=== PATIENT | female | born 1965 | race Caucasian/White ===

== ENCOUNTER 2023-09-09 13:53 | Observation (INO) | payer OTHER ==
[2023-09-09 14:33] LABS: Absolute Neutrophil Ct (ANC) 16.18 x10^3/uL (1.4-6.9); BASOPHIL % 0.2 % (0.0-0.4); Basophil (Absolute #) 0.05 x10^3/uL (0-0.4); Eosinophil (Absolute #) 0.01 x10^3/uL (0-0.5); Hematocrit 41.3 % (35-47); Hemoglobin 14.1 g/dL (12.0-16.0); IMMATURE GRAN # 0.57 x10^3u/L (0.00-0.03); IMMATURE GRAN % 2.6 % (0.00-0.4); Lymphocyte (Absolute #) 1.57 x10^3/uL (1.0-4.6); Lymphocytes % 7.3 % (24.0-44.0); Mean Cell Volume 89.2 fL (78-100); Mean Corpuscular Hemoglobin 30.5 pg (26-32); Mean Corpuscular Hgb Concent. 34.1 g/dL (32-36); Mean Platelet Volume 9.7 fL (7.5-11.0); Monocyte (Absolute #) 3.18 x10^3/uL (0.0-1.3); Monocytes % 14.7 % (0.0-12.0); Neutrophil % 75.2 % (36.0-66.0); Platelet Count 237 x10^3/uL (150-450); Red Blood Count 4.63 x10^6/uL (4.1-5.4); Red Cell Distribution Width 13.2 % (11.5-14.0); White Blood Count 21.6 x10^3/uL (4.0-10.5)
[2023-09-09 14:48] LABS: ALBUMIN 3.6 g/dL (3.5-5.0); ANION GAP 12.8 MEQ/L (5-15); BILIRUBIN,TOTAL 2.8 mg/dL (0.2-1.3); Calcium 8.6 mg/dL (8.4-10.2); Creatinine 1 0.79 mg/dL (0.52-1.04); EST GLOMERULAR FILTRATION RATE 85.6 ML/MIN; Potassium 4.1 mmol/L (3.5-5.1); Total Protein 7.1 g/dL (6.3-8.2)
[2023-09-09 14:51] LABS: Appearance Turbid (Clear); Bilirubin Small (Negative); Blood Moderate (Negative); Epithelial Cells Rare /HPF (None Seen); Glucose, Urine Negative (Negative); Ketones Trace (Negative); Leukocyte Esterase Large (Negative); Nitrite Positive (Negative); Ph 5.5 (4.6-8.0); Protein,Urine Dip 100 (Negative); WBC >100 /HPF (0-5)
[2023-09-09 14:52] LABS: ADD URINE CULTURE? YES (NO); Bacteria Moderate /HPF (None Seen); Hyaline Casts None Seen /LPF (0-2)
--- NOTE | 2023-09-09 15:21 | XRAY ---
Indication: Right flank pain. Multiple contiguous axial images obtained through the abdomen and pelvis without contrast using renal stone protocol. Impression: None Lung bases are degraded by respiration artifact. No focal infiltrate or effusion. Tiny left lower lobe calcific granuloma. Heart not enlarged. Markedly atrophic left kidney with large chunky calculi. No right renal calculus. Right kidney appears prominent/edematous with perinephric stranding favoring nephritis. Previous hysterectomy. Noncontrasted stomach and bowel loops appear nonobstructed. Mild diffuse scattered colonic fecal debris. No free fluid/air. Remaining liver, gallbladder, pancreas, spleen, adrenal glands, and bladder are unremarkable for noncontrast exam. Mild aortoiliac calcifications without AAA. Osseous structures intact. Impression: 1. Prominent and edematous right kidney with perinephric stranding. Rule out nephritis. 2. Mild fecal stasis. 3. Chronic findings including atrophic left kidney with chunky macro-calculi and arteriosclerotic disease.
[2023-09-09 15:58] LABS: Slide Review 1 YES
[2023-09-09] MEDS ORDERED: Levofloxacin 500MG/100ML D5W 500 MG/100 ML BAG IV ONE (16:16)
[2023-09-09] MEDS: Levofloxacin 500MG/100ML D5W 500 MG/100 ML BAG IV STA (16:17)
[2023-09-09] MEDS ORDERED: Sodium Chloride 0.9% 1000 ML 1,000 ML ONE (16:19)
[2023-09-09] MEDS: Sodium Chloride 0.9% 1000 ML 1,000 ML IV SCH ×2 (16:21→18:31)
--- NOTE | 2023-09-09 16:21 | ERPHSYRPT ---
- History of Present Illness Time Seen by Provider: 09/09/23 14:25 Source: patient Exam Limitations: no limitations Patient Subjective Stated Complaint: pt here for lower right back pain. no injury, states has been having frequency of urine, no fever, has been taking azo at home Triage Nursing Assessment: pt alert,arrived per wc, resp easy, skin w/d/p. no edema noted, moves all ext well Physician History: Patient is a 58-year-old female presents to our ED for evaluation of right mid back pain that started approximately 1 week ago. Symptoms have gotten progressively worse in this timeframe. Patient states she feels weak. No trauma no fever no nausea vomiting diaphoresis. Symptoms are progressive symptoms are moderate in intensity. No specific worsening improving factors. No associated chest pain or shortness of breath. Patient otherwise feels well. Family friend at bedside. Patient voices no other complaints or concerns at this time. Portions of this note were created with voice recognition technology. There may be grammatical, spelling, punctuation or sound alike errors Timing/Duration: today Severity: moderate Modifying Factors: Improves With: nothing Associated Symptoms: denies symptoms Allergies/Adverse Reactions: Penicillins Allergy (Verified 09/09/23 14:04) Home Medications: No Reportable Medications [No Reported Medications] 09/09/23 [History] Hx Influenza Vaccination/Date Given: No Hx Pneumococcal Vaccination/Date Given: No Immunizations Up to Date: Yes Travel Risk - International Travel Have you traveled outside of the country in past 3 weeks: No - Emerging Infectious Disease Are you exhibiting symptoms associated with any current EIDs: No - Review of Systems Constitutional: No Symptoms, No Fever, No Chills Eyes: No Symptoms Ears, Nose, & Throat: No Symptoms Respiratory: No Symptoms, No Cough, No Dyspnea Cardiac: No Symptoms, No Chest Pain, No Edema, No Syncope Abdominal/Gastrointestinal: No Symptoms, No Abdominal Pain, No Nausea, No Vomiting, No Diarrhea Genitourinary Symptoms: No Symptoms, No Dysuria Musculoskeletal: No Symptoms, No Back Pain, No Neck Pain Skin: No Symptoms, No Rash Neurological: No Symptoms, No Dizziness, No Focal Weakness, No Sensory Changes Psychological: No Symptoms Endocrine: No Symptoms Hematologic/Lymphatic: No Symptoms Immunological/Allergic: No Symptoms All Other Systems: Reviewed and Negative - Past Medical History Pertinent Past Medical History: No Female Reproductive Disorders: Ovarian Cancer - Past Surgical History Past Surgical History: Yes Female Surgical History: Hysterectomy - Social History Smoking Status: Current every day smoker Exposure to second hand smoke: Yes Drug Use: marijuana - Nursing Vital Signs Nursing Vital Signs: Initial Vital Signs Temperature 97.0 F 09/09/23 14:17 Pulse Rate 106 H 09/09/23 14:17 Respiratory Rate 18 09/09/23 14:17 Blood Pressure 109/63 09/09/23 14:17 O2 Sat by Pulse Oximetry 97 09/09/23 14:17 Pain Scale Pain Intensity [] 6 Pain Intensity 10 - Physical Exam General Appearance: no apparent distress, alert Eye Exam: PERRL/EOMI, eyes nml inspection Ears, Nose, Throat Exam: normal ENT inspection, TMs normal, pharynx normal, moist mucous membranes Neck Exam: normal inspection, non-tender, supple, full range of motion Respiratory Exam: normal breath sounds, lungs clear, airway intact, No respiratory distress Cardiovascular Exam: regular rate/rhythm, normal heart sounds, normal peripheral pulses Gastrointestinal/Abdomen Exam: soft, normal bowel sounds, No tenderness, No mass Back Exam: normal inspection, normal range of motion, No CVA tenderness, No vertebral tenderness Extremity Exam: normal inspection, normal range of motion, pelvis stable Neurologic Exam: alert, oriented x 3, cooperative, normal mood/affect, nml cerebellar function, nml station & gait, sensation nml, No motor deficits Skin Exam: normal color, warm, dry, No rash Lymphatic Exam: No adenopathy SpO2 Interpretation: normal SpO2: 97 O2 Delivery: Room Air - Course Nursing assessment & vital signs reviewed: Yes - CT Exams Abdomen/Pelvis CT Interpretation: Tele-radiologist Report (Right nephritis atrophied left kidney with large chunky nephrolithiasis) Ordered Tests: Active Orders 24 hr Category Date Time Status ABDOMEN AND PELVIS W/0 CONTRAS [CT] Stat Exams 09/09/23 14:28 Completed CBC W DIFF Stat Lab 09/09/23 14:30 Completed CMP Stat Lab 09/09/23 14:30 Completed CULTURE,URINE Stat Lab 09/09/23 14:30 Received LIPASE Stat Lab 09/09/23 14:30 Completed TROPONIN Q4H Lab 09/09/23 14:30 Completed TROPONIN Q4H Lab 09/09/23 18:30 Ordered TROPONIN Q4H Lab 09/09/23 22:30 Ordered UA W/RFX UR CULTURE Stat Lab 09/09/23 14:30 Completed Medication Summary Generic Name Dose Route Start Last Admin Trade Name Freq PRN Reason Stop Dose Admin Levofloxacin/Dextrose 500 mg in 100 mls @ 100 mls/hr 09/09/23 16:13 09/09/23 16:17 Levofloxacin 500mg/100ml D5w IV 09/09/23 17:12 100 ml/hr STAT STA 100 mls/hr Administration Sodium Chloride 1,000 mls @ 100 mls/hr 09/09/23 16:30 09/09/23 16:21 Sodium Chloride 0.9% 1000 Ml IV 10/09/23 16:29 100 mls/hr .Q10H JYOTSNA Administration Discontinued Medications Generic Name Dose Route Start Last Admin Trade Name Freq PRN Reason Stop Dose Admin Levofloxacin/Dextrose Confirm 09/09/23 16:16 Levofloxacin 500mg/100ml D5w Administered 09/09/23 16:17 Dose 500 mg in 100 mls @ ud IV .[employer] Lab/Rad Data: Laboratory Result Diagrams 09/09/23 14:30 09/09/23 14:30 Laboratory Results 09/09/23 09/09/23 09/09/23 Range/Units 14:30 14:30 14:30 WBC (4.0-10.5) x10^3/uL RBC (4.1-5.4) x10^6/uL Hgb (12.0-16.0) g/dL Hct (35-47) % MCV (78-100) fL MCH (26-32) pg MCHC (32-36) g/dL RDW (11.5-14.0) % Plt Count (150-450) x10^3/uL MPV (7.5-11.0) fL Gran % (36.0-66.0) % Immature Gran % (Auto) (0.00-0.4) % Nucleat RBC Rel Count (0.00-0.1) % Eos # (Auto) (0-0.5) x10^3/uL Immature Gran # (Auto) (0.00-0.03) x10^3u/L Absolute Lymphs (auto) (1.0-4.6) x10^3/uL Absolute Monos (auto) (0.0-1.3) x10^3/uL Absolute Nucleated RBC (0.00-0.01) x10^3u/L Lymphocytes % (24.0-44.0) % Monocytes % (0.0-12.0) % Eosinophils % (0.00-5.0) % Basophils % (0.0-0.4) % Absolute Granulocytes (1.4-6.9) x10^3/uL Basophils # (0-0.4) x10^3/uL Sodium 129 L (135-145) mmol/L Potassium 4.1 (3.5-5.1) mmol/L Chloride 100 (98-107) mmol/L Carbon Dioxide 20 L (22-30) mmol/L Anion Gap 12.8 (5-15) MEQ/L BUN 16 (7-17) mg/dL Creatinine 0.79 (0.52-1.04) mg/dL Estimated GFR 85.6 ML/MIN Glucose 112 H (74-106) mg/dL Calcium 8.6 (8.4-10.2) mg/dL Total Bilirubin 2.80 H (0.2-1.3) mg/dL AST 64 H (14-36) U/L ALT 87 H (0-35) U/L Alkaline Phosphatase 159 H (38-126) U/L Troponin I 0.025 (0.000-0.034) ng/mL Serum Total Protein 7.1 (6.3-8.2) g/dL Albumin 3.6 (3.5-5.0) g/dL Lipase 15 L (23-300) U/L Urine Color Dark Yellow A (Yellow) Urine Appearance Turbid A (Clear) Urine pH 5.5 (4.6-8.0) Ur Specific [facility] 1.010 (1.005-1.030) Urine Protein 100 A (Negative) Urine Glucose (UA) Negative (Negative) mg/dL Urine Ketones Trace A (Negative) Urine Blood Moderate A (Negative) Urine Nitrite Positive A (Negative) Urine Bilirubin Small A (Negative) Urine Urobilinogen 2.0 A (0.2) mg/dL Ur Leukocyte Esterase Large A (Negative) U Hyaline Cast (Auto) None Seen (0-2) /LPF Urine Microscopic RBC 6-10 A (0-5) /HPF Urine Microscopic WBC >100 A (0-5) /HPF Ur Epithelial Cells Rare (None Seen) /HPF Urine Bacteria Moderate A (None Seen) /HPF Urine Culture Reflexed YES (NO) Slides for Path Review 09/09/23 Range/Units 14:30 WBC 21.6 H (4.0-10.5) x10^3/uL RBC 4.63 (4.1-5.4) x10^6/uL Hgb 14.1 (12.0-16.0) g/dL Hct 41.3 (35-47) % MCV 89.2 (78-100) fL MCH 30.5 (26-32) pg MCHC 34.1 (32-36) g/dL RDW 13.2 (11.5-14.0) % Plt Count 237 (150-450) x10^3/uL MPV 9.7 (7.5-11.0) fL Gran % 75.2 H (36.0-66.0) % Immature Gran % (Auto) 2.6 H (0.00-0.4) % Nucleat RBC Rel Count 0.0 (0.00-0.1) % Eos # (Auto) 0.01 (0-0.5) x10^3/uL Immature Gran # (Auto) 0.57 H (0.00-0.03) x10^3u/L Absolute Lymphs (auto) 1.57 (1.0-4.6) x10^3/uL Absolute Monos (auto) 3.18 H (0.0-1.3) x10^3/uL Absolute Nucleated RBC 0.00 (0.00-0.01) x10^3u/L Lymphocytes % 7.3 L (24.0-44.0) % Monocytes % 14.7 H (0.0-12.0) % Eosinophils % 0.0 (0.00-5.0) % Basophils % 0.2 (0.0-0.4) % Absolute Granulocytes 16.18 H (1.4-6.9) x10^3/uL Basophils # 0.05 (0-0.4) x10^3/uL Sodium (135-145) mmol/L Potassium (3.5-5.1) mmol/L Chloride (98-107) mmol/L Carbon Dioxide (22-30) mmol/L Anion Gap (5-15) MEQ/L BUN (7-17) mg/dL Creatinine (0.52-1.04) mg/dL Estimated GFR ML/MIN Glucose (74-106) mg/dL Calcium (8.4-10.2) mg/dL Total Bilirubin (0.2-1.3) mg/dL AST (14-36) U/L ALT (0-35) U/L Alkaline Phosphatase (38-126) U/L Troponin I (0.000-0.034) ng/mL Serum Total Protein (6.3-8.2) g/dL Albumin (3.5-5.0) g/dL Lipase (23-300) U/L Urine Color (Yellow) Urine Appearance (Clear) Urine pH (4.6-8.0) Ur Specific [facility] (1.005-1.030) Urine Protein (Negative) Urine Glucose (UA) (Negative) mg/dL Urine Ketones (Negative) Urine Blood (Negative) Urine Nitrite (Negative) Urine Bilirubin (Negative) Urine Urobilinogen (0.2) mg/dL Ur Leukocyte Esterase (Negative) U Hyaline Cast (Auto) (0-2) /LPF Urine Microscopic RBC (0-5) /HPF Urine Microscopic WBC (0-5) /HPF Ur Epithelial Cells (None Seen) /HPF Urine Bacteria (None Seen) /HPF Urine Culture Reflexed (NO) Slides for Path Review YES - Progress Progress: improved Progress Note: 58-year-old female presents to our ED for evaluation of back pain. Physical exam reveals right CVA tenderness. CT negative for kidney stone however there is nephritis with an atrophic left kidney. UA reveals urinary tract infection with significant pyuria. Patient has a leukocytosis of 21,000. Patient received Levaquin IV antibiotic. However she will require hospitalization for further evaluation and treatment. Plan of care discussed with patient. She agrees to admission to [facility] for further evaluation and treatment. Management discussed with hospitalist Who accepts admission at 4:37 PM. Portions of this note were created with voice recognition technology. There may be grammatical, spelling, punctuation or sound alike errors Complexity problem addressed is moderate acute complicated No critical care time Complex of data reviewed and analyzed is extensive. Test ordered test reviewed results analyzed and correlated clinically with history and physical examination. Management discussed with hospitalist who accepts admission at 4:37 PM. Risk of complication and or risk of morbidity/mortality of patient management is high. Patient requires hospitalization for further evaluation and treatment. Time spent to admit patient is approximately 20 minutes. Plan of care established for shared decision making. No social determinants of health present impede follow-up. Portions of this note were created with voice recognition technology. There may be grammatical, spelling, punctuation or sound alike errors 09/09/23 16:42 Counseled pt/family regarding: lab results, diagnosis, rad results - Departure Departure Disposition: Observation Clinical Impression: Pyelonephritis, Leukocytosis, Urinary tract infection, Hyponatremia, Generalized weakness, Atherosclerotic cardiovascular disease, Fecal stasis Condition: Stable Critical Care Time: No Referrals: DOCTOR,NO FAMILY [Primary Care Provider] - Follow up/PCP as directed
--- NOTE | 2023-09-09 17:33 | PCM.HP ---
<YAYO DE LA CRUZ - Last Filed: 09/09/23 17:27> History of Present Illness - Chief Complaint Chief Complaint: Pyelonephritis leukocytosis hyponatremia, sepsis Date: 09/09/23 History of Present Illness: Ms. Diaz is a 58 year old female with a pmhx of cancer (patient unsure of type states she had labia removed as treatment) who presented to ED 09/09/23 with complaints of right flank pain, subjective fevers, chills, weakness, poor appetite, and urinary urgency for the past week. She denies dysuria, abdominal pain, nausea, or vomiting. CT of the abdomen and pelvis showing fecal stasis, right nephritis, and chronic findings of atrophied left kidney with large chunky nephrolithiasis. Patient meeting sepsis criteria with tachycardia, WBC at 21.6, known source of infection with positive UA/CT consistent with pyelonephritis. Patient given IVF and levofloxacin in ED. - Review of Systems Constitutional: Fever, Chills, Fatigue, Malaise, Weakness Eyes: No Symptoms Ears, Nose, & Throat: No Symptoms Respiratory: No Symptoms Cardiac: No Symptoms Abdominal/Gastrointestinal: Appetite Changes Genitourinary Symptoms: Urgency, Flank Pain Musculoskeletal: Back Pain Skin: No Symptoms Neurological: No Symptoms Psychological: No Symptoms Endocrine: No Symptoms Hematologic/Lymphatic: No Symptoms Immunological/Allergic: No Symptoms Medications & Allergies Home Medications: Home Medication List No Reportable Medications [No Reported Medications] 09/09/23 [History Confirmed 09/09/23] Allergies/Adverse Reactions: Allergies Allergy/AdvReac Type Severity Reaction Status Date / Time Penicillins Allergy Verified 09/09/23 14:04 - Past Medical History Past Medical History: No Reproductive Disorders: Other (cancer with labia removed) - Past Surgical History Past Surgical History: Yes - Social History Smoking Status: Current some day smoker (thc) Exposure to second hand smoke: Yes Alcohol: None Drug Use: marijuana - Social Determinants of Health Will the patient participate in the screening: Yes Do you worry about a steady place to live?: No Do you have any problems with any of the following?: No known problems In the past 12 months,have you had to go without utilities?: No Have you or anyone in your house had to go without enough: No Transportation Issues: No Has anyone in your support network made you feel unsafe?: No - Physical Exam Vital Signs: Vital Signs - 24 hr Temp Pulse Resp BP BP Pulse Ox 09/09/23 16:47 97 09/09/23 16:04 99/78 97 09/09/23 14:30 105/62 09/09/23 14:17 97.0 F 106 H 18 109/63 97 General Appearance: no apparent distress Neurologic Exam: alert, oriented x 3, cooperative Eye Exam: PERRL/EOMI Ears, Nose, Throat Exam: normal ENT inspection Neck Exam: normal inspection Respiratory Exam: normal breath sounds, lungs clear Cardiovascular Exam: tachycardia Gastrointestinal/Abdomen Exam: soft, normal bowel sounds Pelvic Exam: not done Rectal Exam: deferred Back Exam: normal inspection Extremity Exam: normal inspection Skin Exam: pale Results - Labs Lab/Micro Results: Lab Results-Last 24 Hours 09/09/23 09/09/23 09/09/23 Range/Units 14:30 14:30 14:30 WBC 21.6 H (4.0-10.5) x10^3/uL RBC 4.63 (4.1-5.4) x10^6/uL Hgb 14.1 (12.0-16.0) g/dL Hct 41.3 (35-47) % MCV 89.2 (78-100) fL MCH 30.5 (26-32) pg MCHC 34.1 (32-36) g/dL RDW 13.2 (11.5-14.0) % Plt Count 237 (150-450) x10^3/uL MPV 9.7 (7.5-11.0) fL Gran % 75.2 H (36.0-66.0) % Immature Gran % (Auto) 2.6 H (0.00-0.4) % Nucleat RBC Rel Count 0.0 (0.00-0.1) % Eos # (Auto) 0.01 (0-0.5) x10^3/uL Immature Gran # (Auto) 0.57 H (0.00-0.03) x10^3u/L Absolute Lymphs (auto) 1.57 (1.0-4.6) x10^3/uL Absolute Monos (auto) 3.18 H (0.0-1.3) x10^3/uL Absolute Nucleated RBC 0.00 (0.00-0.01) x10^3u/L Lymphocytes % 7.3 L (24.0-44.0) % Monocytes % 14.7 H (0.0-12.0) % Eosinophils % 0.0 (0.00-5.0) % Basophils % 0.2 (0.0-0.4) % Absolute Granulocytes 16.18 H (1.4-6.9) x10^3/uL Basophils # 0.05 (0-0.4) x10^3/uL Sodium 129 L (135-145) mmol/L Potassium 4.1 (3.5-5.1) mmol/L Chloride 100 (98-107) mmol/L Carbon Dioxide 20 L (22-30) mmol/L Anion Gap 12.8 (5-15) MEQ/L BUN 16 (7-17) mg/dL Creatinine 0.79 (0.52-1.04) mg/dL Estimated GFR 85.6 ML/MIN Glucose 112 H (74-106) mg/dL Calcium 8.6 (8.4-10.2) mg/dL Total Bilirubin 2.80 H (0.2-1.3) mg/dL AST 64 H (14-36) U/L ALT 87 H (0-35) U/L Alkaline Phosphatase 159 H (38-126) U/L Troponin I (0.000-0.034) ng/mL Serum Total Protein 7.1 (6.3-8.2) g/dL Albumin 3.6 (3.5-5.0) g/dL Lipase 15 L (23-300) U/L Urine Color Dark Yellow A (Yellow) Urine Appearance Turbid A (Clear) Urine pH 5.5 (4.6-8.0) Ur Specific [place] 1.010 (1.005-1.030) Urine Protein 100 A (Negative) Urine Glucose (UA) Negative (Negative) mg/dL Urine Ketones Trace A (Negative) Urine Blood Moderate A (Negative) Urine Nitrite Positive A (Negative) Urine Bilirubin Small A (Negative) Urine Urobilinogen 2.0 A (0.2) mg/dL Ur Leukocyte Esterase Large A (Negative) U Hyaline Cast (Auto) None Seen (0-2) /LPF Urine Microscopic RBC 6-10 A (0-5) /HPF Urine Microscopic WBC >100 A (0-5) /HPF Ur Epithelial Cells Rare (None Seen) /HPF Urine Bacteria Moderate A (None Seen) /HPF Urine Culture Reflexed YES (NO) Slides for Path Review YES 09/09/23 Range/Units 14:30 WBC (4.0-10.5) x10^3/uL RBC (4.1-5.4) x10^6/uL Hgb (12.0-16.0) g/dL Hct (35-47) % MCV (78-100) fL MCH (26-32) pg MCHC (32-36) g/dL RDW (11.5-14.0) % Plt Count (150-450) x10^3/uL MPV (7.5-11.0) fL Gran % (36.0-66.0) % Immature Gran % (Auto) (0.00-0.4) % Nucleat RBC Rel Count (0.00-0.1) % Eos # (Auto) (0-0.5) x10^3/uL Immature Gran # (Auto) (0.00-0.03) x10^3u/L Absolute Lymphs (auto) (1.0-4.6) x10^3/uL Absolute Monos (auto) (0.0-1.3) x10^3/uL Absolute Nucleated RBC (0.00-0.01) x10^3u/L Lymphocytes % (24.0-44.0) % Monocytes % (0.0-12.0) % Eosinophils % (0.00-5.0) % Basophils % (0.0-0.4) % Absolute Granulocytes (1.4-6.9) x10^3/uL Basophils # (0-0.4) x10^3/uL Sodium (135-145) mmol/L Potassium (3.5-5.1) mmol/L Chloride (98-107) mmol/L Carbon Dioxide (22-30) mmol/L Anion Gap (5-15) MEQ/L BUN (7-17) mg/dL Creatinine (0.52-1.04) mg/dL Estimated GFR ML/MIN Glucose (74-106) mg/dL Calcium (8.4-10.2) mg/dL Total Bilirubin (0.2-1.3) mg/dL AST (14-36) U/L ALT (0-35) U/L Alkaline Phosphatase (38-126) U/L Troponin I 0.025 (0.000-0.034) ng/mL Serum Total Protein (6.3-8.2) g/dL Albumin (3.5-5.0) g/dL Lipase (23-300) U/L Urine Color (Yellow) Urine Appearance (Clear) Urine pH (4.6-8.0) Ur Specific [place] (1.005-1.030) Urine Protein (Negative) Urine Glucose (UA) (Negative) mg/dL Urine Ketones (Negative) Urine Blood (Negative) Urine Nitrite (Negative) Urine Bilirubin (Negative) Urine Urobilinogen (0.2) mg/dL Ur Leukocyte Esterase (Negative) U Hyaline Cast (Auto) (0-2) /LPF Urine Microscopic RBC (0-5) /HPF Urine Microscopic WBC (0-5) /HPF Ur Epithelial Cells (None Seen) /HPF Urine Bacteria (None Seen) /HPF Urine Culture Reflexed (NO) Slides for Path Review - Radiology Impressions Radiology Exams & Impressions: Radiology Procedures Category Date Time Status ABDOMEN AND PELVIS W/0 CONTRAS [CT] Stat Exams 09/09/23 14:28 Completed Assessment/Plan (1) Sepsis Current Visit: Yes Status: Acute Assessment & Plan: -Secondary to pyelonephritis -CT showing . Prominent and edematous right kidney with perinephric stranding. Chronic findings including atrophic left kidney with chunky macro-calculi and arteriosclerotic disease -blood and urine cxs ordered -Lactate drawn. Repeat lactate will be drawn in initial >2mmol/L If subsequent lactate elevated, trend until WNL -IVF bolus-CBC, BMP, Mg, Phos in am -continue appropriate baseline home medications -DVT prophylaxis-lovenox 40 mg SQ daily -Will admin vasopressors if hypotensive after IV admin (MAP <65 or SBP <90). (2) Hyponatremia Current Visit: Yes Status: Acute Assessment & Plan: -most likely secondary to hypovolemia -IVF -Tele -Monitor BMP Q4H Code(s): E87.1 - HYPO-OSMOLALITY AND HYPONATREMIA (3) Pyelonephritis Current Visit: Yes Status: Acute Assessment & Plan: -CT as described above, consistent with right nephritis -Levaquin started in ED, will continue, follow culture, patient with penicillin allergy (anaphylactic reaction) -IVF -Urine/blood cult pending Code(s): N12 - TUBULO-INTERSTITIAL NEPHRITIS, NOT SPCF ACUTE OR CHRONIC (4) Transaminitis Current Visit: Yes Status: Acute Assessment & Plan: -Liver unremarkable on CT -Reactive vs infective process -Hep davis -Continue to monitor and trend VTE lovenox PPI protonix Dispo 1-2 days Code(s): R74.01 - ELEVATION OF LEVELS OF LIVER TRANSAMINASE LEVELS Telemedicine Encounter - Telemedicine Encounter Telemedicine Encounter: The entirety of this encounter was performed via Telemedicine" <SOLOMON CHARLES - Last Filed: 09/09/23 19:51> History of Present Illness - Chief Complaint History of Present Illness: is a 58 year old female. - Physical Exam Vital Signs: Vital Signs - 24 hr Temp Pulse Resp BP BP Pulse Ox 09/09/23 19:20 96 09/09/23 17:28 99.6 F 117 H 16 123/61 93 L 09/09/23 16:47 97 09/09/23 16:04 99/78 97 09/09/23 14:30 105/62 09/09/23 14:17 97.0 F 106 H 18 109/63 97 Results - Labs Lab/Micro Results: Lab Results-Last 24 Hours 09/09/23 09/09/23 09/09/23 Range/Units 14:30 14:30 14:30 WBC 21.6 H (4.0-10.5) x10^3/uL RBC 4.63 (4.1-5.4) x10^6/uL Hgb 14.1 (12.0-16.0) g/dL Hct 41.3 (35-47) % MCV 89.2 (78-100) fL MCH 30.5 (26-32) pg MCHC 34.1 (32-36) g/dL RDW 13.2 (11.5-14.0) % Plt Count 237 (150-450) x10^3/uL MPV 9.7 (7.5-11.0) fL Gran % 75.2 H (36.0-66.0) % Immature Gran % (Auto) 2.6 H (0.00-0.4) % Nucleat RBC Rel Count 0.0 (0.00-0.1) % Eos # (Auto) 0.01 (0-0.5) x10^3/uL Immature Gran # (Auto) 0.57 H (0.00-0.03) x10^3u/L Absolute Lymphs (auto) 1.57 (1.0-4.6) x10^3/uL Absolute Monos (auto) 3.18 H (0.0-1.3) x10^3/uL Absolute Nucleated RBC 0.00 (0.00-0.01) x10^3u/L Lymphocytes % 7.3 L (24.0-44.0) % Monocytes % 14.7 H (0.0-12.0) % Eosinophils % 0.0 (0.00-5.0) % Basophils % 0.2 (0.0-0.4) % Absolute Granulocytes 16.18 H (1.4-6.9) x10^3/uL Basophils # 0.05 (0-0.4) x10^3/uL Sodium 129 L (135-145) mmol/L Potassium 4.1 (3.5-5.1) mmol/L Chloride 100 (98-107) mmol/L Carbon Dioxide 20 L (22-30) mmol/L Anion Gap 12.8 (5-15) MEQ/L BUN 16 (7-17) mg/dL Creatinine 0.79 (0.52-1.04) mg/dL Estimated GFR 85.6 ML/MIN Glucose 112 H (74-106) mg/dL Lactic Acid (0.4-2.0) Calcium 8.6 (8.4-10.2) mg/dL Total Bilirubin 2.80 H (0.2-1.3) mg/dL AST 64 H (14-36) U/L ALT 87 H (0-35) U/L Alkaline Phosphatase 159 H (38-126) U/L Troponin I (0.000-0.034) ng/mL Serum Total Protein 7.1 (6.3-8.2) g/dL Albumin 3.6 (3.5-5.0) g/dL Lipase 15 L (23-300) U/L Procalcitonin (0.030-0.080) ng/mL Urine Color Dark Yellow A (Yellow) Urine Appearance Turbid A (Clear) Urine pH 5.5 (4.6-8.0) Ur Specific [place] 1.010 (1.005-1.030) Urine Protein 100 A (Negative) Urine Glucose (UA) Negative (Negative) mg/dL Urine Ketones Trace A (Negative) Urine Blood Moderate A (Negative) Urine Nitrite Positive A (Negative) Urine Bilirubin Small A (Negative) Urine Urobilinogen 2.0 A (0.2) mg/dL Ur Leukocyte Esterase Large A (Negative) U Hyaline Cast (Auto) None Seen (0-2) /LPF Urine Microscopic RBC 6-10 A (0-5) /HPF Urine Microscopic WBC >100 A (0-5) /HPF Ur Epithelial Cells Rare (None Seen) /HPF Urine Bacteria Moderate A (None Seen) /HPF Urine Culture Reflexed YES (NO) Slides for Path Review YES 09/09/23 09/09/23 09/09/23 Range/Units 14:30 17:55 17:56 WBC (4.0-10.5) x10^3/uL RBC (4.1-5.4) x10^6/uL Hgb (12.0-16.0) g/dL Hct (35-47) % MCV (78-100) fL MCH (26-32) pg MCHC (32-36) g/dL RDW (11.5-14.0) % Plt Count (150-450) x10^3/uL MPV (7.5-11.0) fL Gran % (36.0-66.0) % Immature Gran % (Auto) (0.00-0.4) % Nucleat RBC Rel Count (0.00-0.1) % Eos # (Auto) (0-0.5) x10^3/uL Immature Gran # (Auto) (0.00-0.03) x10^3u/L Absolute Lymphs (auto) (1.0-4.6) x10^3/uL Absolute Monos (auto) (0.0-1.3) x10^3/uL Absolute Nucleated RBC (0.00-0.01) x10^3u/L Lymphocytes % (24.0-44.0) % Monocytes % (0.0-12.0) % Eosinophils % (0.00-5.0) % Basophils % (0.0-0.4) % Absolute Granulocytes (1.4-6.9) x10^3/uL Basophils # (0-0.4) x10^3/uL Sodium (135-145) mmol/L Potassium (3.5-5.1) mmol/L Chloride (98-107) mmol/L Carbon Dioxide (22-30) mmol/L Anion Gap (5-15) MEQ/L BUN (7-17) mg/dL Creatinine (0.52-1.04) mg/dL Estimated GFR ML/MIN Glucose (74-106) mg/dL Lactic Acid 0.8 (0.4-2.0) Calcium (8.4-10.2) mg/dL Total Bilirubin (0.2-1.3) mg/dL AST (14-36) U/L ALT (0-35) U/L Alkaline Phosphatase (38-126) U/L Troponin I 0.025 (0.000-0.034) ng/mL Serum Total Protein (6.3-8.2) g/dL Albumin (3.5-5.0) g/dL Lipase (23-300) U/L Procalcitonin 0.392 H (0.030-0.080) ng/mL Urine Color (Yellow) Urine Appearance (Clear) Urine pH (4.6-8.0) Ur Specific [place] (1.005-1.030) Urine Protein (Negative) Urine Glucose (UA) (Negative) mg/dL Urine Ketones (Negative) Urine Blood (Negative) Urine Nitrite (Negative) Urine Bilirubin (Negative) Urine Urobilinogen (0.2) mg/dL Ur Leukocyte Esterase (Negative) U Hyaline Cast (Auto) (0-2) /LPF Urine Microscopic RBC (0-5) /HPF Urine Microscopic WBC (0-5) /HPF Ur Epithelial Cells (None Seen) /HPF Urine Bacteria (None Seen) /HPF Urine Culture Reflexed (NO) Slides for Path Review 09/09/23 Range/Units 18:01 WBC (4.0-10.5) x10^3/uL RBC (4.1-5.4) x10^6/uL Hgb (12.0-16.0) g/dL Hct (35-47) % MCV (78-100) fL MCH (26-32) pg MCHC (32-36) g/dL RDW (11.5-14.0) % Plt Count (150-450) x10^3/uL MPV (7.5-11.0) fL Gran % (36.0-66.0) % Immature Gran % (Auto) (0.00-0.4) % Nucleat RBC Rel Count (0.00-0.1) % Eos # (Auto) (0-0.5) x10^3/uL Immature Gran # (Auto) (0.00-0.03) x10^3u/L Absolute Lymphs (auto) (1.0-4.6) x10^3/uL Absolute Monos (auto) (0.0-1.3) x10^3/uL Absolute Nucleated RBC (0.00-0.01) x10^3u/L Lymphocytes % (24.0-44.0) % Monocytes % (0.0-12.0) % Eosinophils % (0.00-5.0) % Basophils % (0.0-0.4) % Absolute Granulocytes (1.4-6.9) x10^3/uL Basophils # (0-0.4) x10^3/uL Sodium (135-145) mmol/L Potassium (3.5-5.1) mmol/L Chloride (98-107) mmol/L Carbon Dioxide (22-30) mmol/L Anion Gap (5-15) MEQ/L BUN (7-17) mg/dL Creatinine (0.52-1.04) mg/dL Estimated GFR ML/MIN Glucose (74-106) mg/dL Lactic Acid (0.4-2.0) Calcium (8.4-10.2) mg/dL Total Bilirubin (0.2-1.3) mg/dL AST (14-36) U/L ALT (0-35) U/L Alkaline Phosphatase (38-126) U/L Troponin I 0.013 (0.000-0.034) ng/mL Serum Total Protein (6.3-8.2) g/dL Albumin (3.5-5.0) g/dL Lipase (23-300) U/L Procalcitonin (0.030-0.080) ng/mL Urine Color (Yellow) Urine Appearance (Clear) Urine pH (4.6-8.0) Ur Specific [place] (1.005-1.030) Urine Protein (Negative) Urine Glucose (UA) (Negative) mg/dL Urine Ketones (Negative) Urine Blood (Negative) Urine Nitrite (Negative) Urine Bilirubin (Negative) Urine Urobilinogen (0.2) mg/dL Ur Leukocyte Esterase (Negative) U Hyaline Cast (Auto) (0-2) /LPF Urine Microscopic RBC (0-5) /HPF Urine Microscopic WBC (0-5) /HPF Ur Epithelial Cells (None Seen) /HPF Urine Bacteria (None Seen) /HPF Urine Culture Reflexed (NO) Slides for Path Review - Radiology Impressions Radiology Exams & Impressions: Radiology Procedures Category Date Time Status ABDOMEN AND PELVIS W/0 CONTRAS [CT] Stat Exams 09/09/23 14:28 Completed - Other Procedures and Tests Respiratory Therapy 09/09/23 17:56 Smoking Cessation Education ONCE Telemedicine Encounter - Telemedicine Encounter Telemedicine Encounter: The entirety of this encounter was performed via Telemedicine" SUSHMA Encounter - SUSHMA Encounter Attestation SUSHMA Encounter Attestation: "IhavepersonallyseenandexAnderson, [place] andhavediscussed pertinent aspects of their care with Yayo Muniz agree with the history, physical exam (any modifications based on my personal exam will be noted below), assessment, and plan as outlined in original note. Please see immediately below for my summary of findings and additional assessment and plan along with any meaningful corrections/explanations to the Subjective/Objective portions of the SUSHMA note will be noted." My portion of the encounter took place via telemedicine. -Sepsis with acute pyelonephritis. IVF, levaquin for antibiotic coverage and blood/urine cultures.
[2023-09-09] MEDS: Sodium Chloride 0.9% 1000 ML 1,000 ML IV STA (17:58)
[2023-09-09] MEDS: Nicoderm CQ 21 MG TOP SCH (17:59)
[2023-09-09] MEDS: NORCO 5/325 MG PO PRN (18:27)
[2023-09-09 22:37] LABS: ANION GAP 11.8 MEQ/L (5-15); Calcium 8.2 mg/dL (8.4-10.2); Creatinine 1 0.97 mg/dL (0.52-1.04); EST GLOMERULAR FILTRATION RATE 66.9 ML/MIN; Potassium 4.2 mmol/L (3.5-5.1)
[2023-09-09] MEDS: TYLENOL 325 MG PO PRN (23:42)
[2023-09-10] MEDS ORDERED: Sodium Chloride 0.9% 1000 ML 1,000 ML ONE (02:23)
[2023-09-10 04:53] LABS: ALBUMIN 3.1 g/dL (3.5-5.0); ANION GAP 10.6 MEQ/L (5-15); BILIRUBIN,TOTAL 3.7 mg/dL (0.2-1.3); Calcium 8.2 mg/dL (8.4-10.2); EST GLOMERULAR FILTRATION RATE 64.5 ML/MIN; Total Protein 6.3 g/dL (6.3-8.2)
[2023-09-10 04:57] LABS: Absolute Neutrophil Ct (ANC) 15.62 x10^3/uL (1.4-6.9); BASOPHIL % 0.2 % (0.0-0.4); Basophil (Absolute #) 0.05 x10^3/uL (0-0.4); Eosinophil (Absolute #) 0.01 x10^3/uL (0-0.5); Hematocrit 41.6 % (35-47); Hemoglobin 13.6 g/dL (12.0-16.0); IMMATURE GRAN # 0.24 x10^3u/L (0.00-0.03); IMMATURE GRAN % 1.2 % (0.00-0.4); Lymphocyte (Absolute #) 1.86 x10^3/uL (1.0-4.6); Lymphocytes % 9.2 % (24.0-44.0); Mean Cell Volume 92.9 fL (78-100); Mean Corpuscular Hemoglobin 30.4 pg (26-32); Mean Corpuscular Hgb Concent. 32.7 g/dL (32-36); Mean Platelet Volume 10.1 fL (7.5-11.0); Monocyte (Absolute #) 2.41 x10^3/uL (0.0-1.3); Monocytes % 11.9 % (0.0-12.0); Neutrophil % 77.5 % (36.0-66.0); Platelet Count 213 x10^3/uL (150-450); Red Blood Count 4.48 x10^6/uL (4.1-5.4); Red Cell Distribution Width 13.3 % (11.5-14.0); White Blood Count 20.2 x10^3/uL (4.0-10.5)
[2023-09-10 07:14] LABS: Slide Review 1 YES
--- NOTE | 2023-09-10 08:47 | PCM.NOTE ---
Date and Time: 09/10/23 0833 Subjective Assessment: Ms. Diaz is a 58 year old female admitted with sepsis secondary to pyelonephritis after presenting to ED 09/09/23 with a week history of right flank pain, subjective fevers, chills, weakness, poor appetite, and urinary urgency. CT imaging consistent with right nephritis. U-cult growing gram negative org anism. 09/10/23: Overnight events noted, patient febrile with TMAX 101.6. She is afebrile this morning. Endorses right CVA tenderness, nausea, and urgency. She reported non- radiating intermittent left-sided chest pain this morning. Onset was about 5 a.m. She describes the pain as dull/aching. No aggravating/relieving factors. No associated symptoms. EKG showing sinus tachycardia with HR 104. Troponins have all been WNL. Denies cough, sob, abdominal pain, KELLY, dizziness, N/V/D. - Review of Systems Constitutional: No Symptoms Eyes: No Symptoms Ears, Nose, & Throat: No Symptoms Respiratory: No Symptoms Cardiac: Chest Pain Abdominal/Gastrointestinal: Nausea Genitourinary Symptoms: Urgency Musculoskeletal: Back Pain Skin: No Symptoms Neurological: No Symptoms Psychological: No Symptoms Endocrine: No Symptoms Hematologic/Lymphatic: No Symptoms Immunological/Allergic: No Symptoms Objective Exam General Appearance: no apparent distress Neurologic Exam: alert, oriented x 3, cooperative Skin Exam: normal color Eye Exam: PERRL Ears, Nose, Throat Exam: normal ENT inspection Neck Exam: normal inspection Respiratory Exam: normal breath sounds, lungs clear Cardiovascular Exam: tachycardia Extremity Exam: normal inspection Back Exam: CVA tenderness (right) Pelvic Exam: deferred Rectal Exam: deferred Objective Data Vital Signs: Vital Signs - 24 hr Temp Pulse Resp BP BP BP Pulse Ox 09/10/23 07:40 98.4 F 97 H 20 106/59 100 09/10/23 04:00 21 09/10/23 03:49 98.9 F 97 H 21 105/60 99 09/10/23 00:00 22 09/09/23 23:48 101.6 F 117 H 22 111/57 96 09/09/23 20:00 97.8 F 97 H 19 95/55 96 09/09/23 19:20 96 09/09/23 17:28 99.6 F 117 H 16 123/61 93 L 09/09/23 16:47 97 09/09/23 16:04 99/78 97 09/09/23 14:30 105/62 09/09/23 14:17 97.0 F 106 H 18 109/63 97 Pain Assessment - Last Documented Pain Intensity [Right Back] 6 Pain Intensity 9 Pain Scale Used [facility] Intake and Output: Intake & Output 09/07/23 09/08/23 09/09/23 09/10/23 11:59 11:59 11:59 11:59 Intake Total 960 Output Total 500 Balance 460 Weight 57.6 kg Lab Results: Lab Results-Last 24 Hours 09/09/23 09/09/23 09/09/23 Range/Units 14:30 14:30 14:30 WBC 21.6 H (4.0-10.5) x10^3/uL RBC 4.63 (4.1-5.4) x10^6/uL Hgb 14.1 (12.0-16.0) g/dL Hct 41.3 (35-47) % MCV 89.2 (78-100) fL MCH 30.5 (26-32) pg MCHC 34.1 (32-36) g/dL RDW 13.2 (11.5-14.0) % Plt Count 237 (150-450) x10^3/uL MPV 9.7 (7.5-11.0) fL Gran % 75.2 H (36.0-66.0) % Immature Gran % (Auto) 2.6 H (0.00-0.4) % Nucleat RBC Rel Count 0.0 (0.00-0.1) % Eos # (Auto) 0.01 (0-0.5) x10^3/uL Immature Gran # (Auto) 0.57 H (0.00-0.03) x10^3u/L Absolute Lymphs (auto) 1.57 (1.0-4.6) x10^3/uL Absolute Monos (auto) 3.18 H (0.0-1.3) x10^3/uL Absolute Nucleated RBC 0.00 (0.00-0.01) x10^3u/L Lymphocytes % 7.3 L (24.0-44.0) % Monocytes % 14.7 H (0.0-12.0) % Eosinophils % 0.0 (0.00-5.0) % Basophils % 0.2 (0.0-0.4) % Absolute Granulocytes 16.18 H (1.4-6.9) x10^3/uL Basophils # 0.05 (0-0.4) x10^3/uL Sodium 129 L (135-145) mmol/L Potassium 4.1 (3.5-5.1) mmol/L Chloride 100 (98-107) mmol/L Carbon Dioxide 20 L (22-30) mmol/L Anion Gap 12.8 (5-15) MEQ/L BUN 16 (7-17) mg/dL Creatinine 0.79 (0.52-1.04) mg/dL Estimated GFR 85.6 ML/MIN Glucose 112 H (74-106) mg/dL Lactic Acid (0.4-2.0) Calcium 8.6 (8.4-10.2) mg/dL Total Bilirubin 2.80 H (0.2-1.3) mg/dL AST 64 H (14-36) U/L ALT 87 H (0-35) U/L Alkaline Phosphatase 159 H (38-126) U/L Troponin I (0.000-0.034) ng/mL Serum Total Protein 7.1 (6.3-8.2) g/dL Albumin 3.6 (3.5-5.0) g/dL Lipase 15 L (23-300) U/L Procalcitonin (0.030-0.080) ng/mL Urine Color Dark Yellow A (Yellow) Urine Appearance Turbid A (Clear) Urine pH 5.5 (4.6-8.0) Ur Specific [place] 1.010 (1.005-1.030) Urine Protein 100 A (Negative) Urine Glucose (UA) Negative (Negative) mg/dL Urine Ketones Trace A (Negative) Urine Blood Moderate A (Negative) Urine Nitrite Positive A (Negative) Urine Bilirubin Small A (Negative) Urine Urobilinogen 2.0 A (0.2) mg/dL Ur Leukocyte Esterase Large A (Negative) U Hyaline Cast (Auto) None Seen (0-2) /LPF Urine Microscopic RBC 6-10 A (0-5) /HPF Urine Microscopic WBC >100 A (0-5) /HPF Ur Epithelial Cells Rare (None Seen) /HPF Urine Bacteria Moderate A (None Seen) /HPF Urine Culture Reflexed YES (NO) Slides for Path Review YES 09/09/23 09/09/23 09/09/23 Range/Units 14:30 17:55 17:56 WBC (4.0-10.5) x10^3/uL RBC (4.1-5.4) x10^6/uL Hgb (12.0-16.0) g/dL Hct (35-47) % MCV (78-100) fL MCH (26-32) pg MCHC (32-36) g/dL RDW (11.5-14.0) % Plt Count (150-450) x10^3/uL MPV (7.5-11.0) fL Gran % (36.0-66.0) % Immature Gran % (Auto) (0.00-0.4) % Nucleat RBC Rel Count (0.00-0.1) % Eos # (Auto) (0-0.5) x10^3/uL Immature Gran # (Auto) (0.00-0.03) x10^3u/L Absolute Lymphs (auto) (1.0-4.6) x10^3/uL Absolute Monos (auto) (0.0-1.3) x10^3/uL Absolute Nucleated RBC (0.00-0.01) x10^3u/L Lymphocytes % (24.0-44.0) % Monocytes % (0.0-12.0) % Eosinophils % (0.00-5.0) % Basophils % (0.0-0.4) % Absolute Granulocytes (1.4-6.9) x10^3/uL Basophils # (0-0.4) x10^3/uL Sodium (135-145) mmol/L Potassium (3.5-5.1) mmol/L Chloride (98-107) mmol/L Carbon Dioxide (22-30) mmol/L Anion Gap (5-15) MEQ/L BUN (7-17) mg/dL Creatinine (0.52-1.04) mg/dL Estimated GFR ML/MIN Glucose (74-106) mg/dL Lactic Acid 0.8 (0.4-2.0) Calcium (8.4-10.2) mg/dL Total Bilirubin (0.2-1.3) mg/dL AST (14-36) U/L ALT (0-35) U/L Alkaline Phosphatase (38-126) U/L Troponin I 0.025 (0.000-0.034) ng/mL Serum Total Protein (6.3-8.2) g/dL Albumin (3.5-5.0) g/dL Lipase (23-300) U/L Procalcitonin 0.392 H (0.030-0.080) ng/mL Urine Color (Yellow) Urine Appearance (Clear) Urine pH (4.6-8.0) Ur Specific [place] (1.005-1.030) Urine Protein (Negative) Urine Glucose (UA) (Negative) mg/dL Urine Ketones (Negative) Urine Blood (Negative) Urine Nitrite (Negative) Urine Bilirubin (Negative) Urine Urobilinogen (0.2) mg/dL Ur Leukocyte Esterase (Negative) U Hyaline Cast (Auto) (0-2) /LPF Urine Microscopic RBC (0-5) /HPF Urine Microscopic WBC (0-5) /HPF Ur Epithelial Cells (None Seen) /HPF Urine Bacteria (None Seen) /HPF Urine Culture Reflexed (NO) Slides for Path Review 09/09/23 09/09/23 09/09/23 Range/Units 18:01 22:20 22:20 WBC (4.0-10.5) x10^3/uL RBC (4.1-5.4) x10^6/uL Hgb (12.0-16.0) g/dL Hct (35-47) % MCV (78-100) fL MCH (26-32) pg MCHC (32-36) g/dL RDW (11.5-14.0) % Plt Count (150-450) x10^3/uL MPV (7.5-11.0) fL Gran % (36.0-66.0) % Immature Gran % (Auto) (0.00-0.4) % Nucleat RBC Rel Count (0.00-0.1) % Eos # (Auto) (0-0.5) x10^3/uL Immature Gran # (Auto) (0.00-0.03) x10^3u/L Absolute Lymphs (auto) (1.0-4.6) x10^3/uL Absolute Monos (auto) (0.0-1.3) x10^3/uL Absolute Nucleated RBC (0.00-0.01) x10^3u/L Lymphocytes % (24.0-44.0) % Monocytes % (0.0-12.0) % Eosinophils % (0.00-5.0) % Basophils % (0.0-0.4) % Absolute Granulocytes (1.4-6.9) x10^3/uL Basophils # (0-0.4) x10^3/uL Sodium 133 L (135-145) mmol/L Potassium 4.2 (3.5-5.1) mmol/L Chloride 104 (98-107) mmol/L Carbon Dioxide 22 (22-30) mmol/L Anion Gap 11.8 (5-15) MEQ/L BUN 16 (7-17) mg/dL Creatinine 0.97 (0.52-1.04) mg/dL Estimated GFR 66.9 ML/MIN Glucose 109 H (74-106) mg/dL Lactic Acid (0.4-2.0) Calcium 8.2 L (8.4-10.2) mg/dL Total Bilirubin (0.2-1.3) mg/dL AST (14-36) U/L ALT (0-35) U/L Alkaline Phosphatase (38-126) U/L Troponin I 0.013 < 0.012 (0.000-0.034) ng/mL Serum Total Protein (6.3-8.2) g/dL Albumin (3.5-5.0) g/dL Lipase (23-300) U/L Procalcitonin (0.030-0.080) ng/mL Urine Color (Yellow) Urine Appearance (Clear) Urine pH (4.6-8.0) Ur Specific [place] (1.005-1.030) Urine Protein (Negative) Urine Glucose (UA) (Negative) mg/dL Urine Ketones (Negative) Urine Blood (Negative) Urine Nitrite (Negative) Urine Bilirubin (Negative) Urine Urobilinogen (0.2) mg/dL Ur Leukocyte Esterase (Negative) U Hyaline Cast (Auto) (0-2) /LPF Urine Microscopic RBC (0-5) /HPF Urine Microscopic WBC (0-5) /HPF Ur Epithelial Cells (None Seen) /HPF Urine Bacteria (None Seen) /HPF Urine Culture Reflexed (NO) Slides for Path Review 09/10/23 09/10/23 09/10/23 Range/Units 04:05 04:05 07:55 WBC 20.2 H (4.0-10.5) x10^3/uL RBC 4.48 (4.1-5.4) x10^6/uL Hgb 13.6 (12.0-16.0) g/dL Hct 41.6 (35-47) % MCV 92.9 (78-100) fL MCH 30.4 (26-32) pg MCHC 32.7 (32-36) g/dL RDW 13.3 (11.5-14.0) % Plt Count 213 (150-450) x10^3/uL MPV 10.1 (7.5-11.0) fL Gran % 77.5 H (36.0-66.0) % Immature Gran % (Auto) 1.2 H (0.00-0.4) % Nucleat RBC Rel Count 0.0 (0.00-0.1) % Eos # (Auto) 0.01 (0-0.5) x10^3/uL Immature Gran # (Auto) 0.24 H (0.00-0.03) x10^3u/L Absolute Lymphs (auto) 1.86 (1.0-4.6) x10^3/uL Absolute Monos (auto) 2.41 H (0.0-1.3) x10^3/uL Absolute Nucleated RBC 0.00 (0.00-0.01) x10^3u/L Lymphocytes % 9.2 L (24.0-44.0) % Monocytes % 11.9 (0.0-12.0) % Eosinophils % 0.0 (0.00-5.0) % Basophils % 0.2 (0.0-0.4) % Absolute Granulocytes 15.62 H (1.4-6.9) x10^3/uL Basophils # 0.05 (0-0.4) x10^3/uL Sodium 134 L (135-145) mmol/L Potassium 4.0 (3.5-5.1) mmol/L Chloride 105 (98-107) mmol/L Carbon Dioxide 22 (22-30) mmol/L Anion Gap 10.6 (5-15) MEQ/L BUN 16 (7-17) mg/dL Creatinine 1.00 (0.52-1.04) mg/dL Estimated GFR 64.5 ML/MIN Glucose 104 (74-106) mg/dL Lactic Acid (0.4-2.0) Calcium 8.2 L (8.4-10.2) mg/dL Total Bilirubin 3.70 H (0.2-1.3) mg/dL AST 41 H (14-36) U/L ALT 74 H (0-35) U/L Alkaline Phosphatase 145 H (38-126) U/L Troponin I 0.034 (0.000-0.034) ng/mL Serum Total Protein 6.3 (6.3-8.2) g/dL Albumin 3.1 L (3.5-5.0) g/dL Lipase (23-300) U/L Procalcitonin (0.030-0.080) ng/mL Urine Color (Yellow) Urine Appearance (Clear) Urine pH (4.6-8.0) Ur Specific [place] (1.005-1.030) Urine Protein (Negative) Urine Glucose (UA) (Negative) mg/dL Urine Ketones (Negative) Urine Blood (Negative) Urine Nitrite (Negative) Urine Bilirubin (Negative) Urine Urobilinogen (0.2) mg/dL Ur Leukocyte Esterase (Negative) U Hyaline Cast (Auto) (0-2) /LPF Urine Microscopic RBC (0-5) /HPF Urine Microscopic WBC (0-5) /HPF Ur Epithelial Cells (None Seen) /HPF Urine Bacteria (None Seen) /HPF Urine Culture Reflexed (NO) Slides for Path Review YES Radiology Exams: Radiology Procedures Category Date Time Status ABDOMEN AND PELVIS W/0 CONTRAS [CT] Stat Exams 09/09/23 14:28 Completed Assessment/Plan (1) Sepsis Current Visit: Yes Status: Acute Assessment & Plan: -Secondary to pyelonephritis -CT showing . Prominent and edematous right kidney with perinephric stranding. Chronic findings including atrophic left kidney with chunky macro-calculi and arteriosclerotic disease -blood and urine cxs ordered -Lactate drawn. Repeat lactate will be drawn in initial >2mmol/L If subsequent lactate elevated, trend until WNL -IVF bolus-CBC, BMP, Mg, Phos in am -continue appropriate baseline home medications -DVT prophylaxis-lovenox 40 mg SQ daily -Will admin vasopressors if hypotensive after IV admin (MAP <65 or SBP <90). 42: -Continue levaquin -LA wnl -WBC trending down 20.2<21.6 (2) Hyponatremia Current Visit: Yes Status: Acute Assessment & Plan: -most likely secondary to hypovolemia -IVF -Tele -Monitor BMP Q4H 43: -improving, continue IVF -Daily CMP Code(s): E87.1 - HYPO-OSMOLALITY AND HYPONATREMIA (3) Pyelonephritis Current Visit: Yes Status: Acute Assessment & Plan: -CT as described above, consistent with right nephritis -Levaquin started in ED, will continue, follow culture, patient with penicillin allergy (anaphylactic reaction) -IVF -Urine/blood cult pending 09/09: -Continue levaquin -Ucult with gram - organism, follow culture -IVF Code(s): N12 - TUBULO-INTERSTITIAL NEPHRITIS, NOT SPCF ACUTE OR CHRONIC (4) Transaminitis Current Visit: Yes Status: Acute Assessment & Plan: -Liver unremarkable on CT -Reactive vs infective process -Hep davis -Continue to monitor and trend 3: -AST/ALT/ALK phos trending down, Tbili trending up -Hep davis pending, no h/o of liver disease - most likely reactive process -RUQ US VTE lovenox PPI protonix Dispo 1-2 days Code(s): R74.01 - ELEVATION OF LEVELS OF LIVER TRANSAMINASE LEVELS (2) Hyponatremia Current Visit: Yes Status: Acute Code(s): E87.1 - HYPO-OSMOLALITY AND HYPONATREMIA (3) Pyelonephritis Current Visit: Yes Status: Acute Code(s): N12 - TUBULO-INTERSTITIAL NEPHRITIS, NOT SPCF ACUTE OR CHRONIC (4) Transaminitis Current Visit: Yes Status: Acute Code(s): R74.01 - ELEVATION OF LEVELS OF LIVER TRANSAMINASE LEVELS
[2023-09-10] MEDS: Zofran 4 MG/2 ML VIAL IV PRN (09:20)
[2023-09-10] MEDS: LEVOFLOXACIN 750MG/150ML D5W 750 MG/150 ML BAG IV SCH (09:21)
[2023-09-10] MEDS: Compazine 10 MG/2 ML IV PRN (12:17)
[2023-09-10] MEDS: Hydromorphone 1 mg/ml Injection IV PRN (12:31)
--- NOTE | 2023-09-10 14:08 | XRAY ---
Indication: Transaminitis/pyelonephritis. Two-dimensional right upper quadrant abdominal sonogram performed. Comparison: None Visualized liver and pancreas are homogeneous in echogenicity. No organomegaly or free fluid. Gallbladder moderately distended with wall thickening up to 4.4 mm. No gallstones or pericholecystic fluid. Common bile duct measures 5.4 mm. No intrahepatic biliary distention. Right kidney measures 14.1 x 7.0 x 1.4 cm and demonstrates normal color perfusion. No focal solid/cystic renal mass or hydronephrosis. Impression: 1. Distended gallbladder with wall thickening. Rule out chronic cholecystitis. 2. Remaining right upper quadrant sonogram is negative.
[2023-09-10 17:32] LABS: ALBUMIN 2.8 g/dL (3.5-5.0); ANION GAP 10.6 MEQ/L (5-15); BILIRUBIN,TOTAL 2.6 mg/dL (0.2-1.3); Creatinine 1 0.91 mg/dL (0.52-1.04); EST GLOMERULAR FILTRATION RATE 72.2 ML/MIN; Potassium 3.9 mmol/L (3.5-5.1); Total Protein 5.9 g/dL (6.3-8.2)
[2023-09-11 04:44] LABS: Absolute Neutrophil Ct (ANC) 12.46 x10^3/uL (1.4-6.9); BASOPHIL % 0.2 % (0.0-0.4); Basophil (Absolute #) 0.03 x10^3/uL (0-0.4); Eosinophil (Absolute #) 0 x10^3/uL (0-0.5); Hematocrit 36.3 % (35-47); Hemoglobin 12.2 g/dL (12.0-16.0); IMMATURE GRAN # 0.29 x10^3u/L (0.00-0.03); IMMATURE GRAN % 1.9 % (0.00-0.4); Lymphocyte (Absolute #) 1.06 x10^3/uL (1.0-4.6); Lymphocytes % 6.8 % (24.0-44.0); Mean Cell Volume 91.7 fL (78-100); Mean Corpuscular Hemoglobin 30.8 pg (26-32); Mean Corpuscular Hgb Concent. 33.6 g/dL (32-36); Mean Platelet Volume 10.1 fL (7.5-11.0); Monocyte (Absolute #) 1.83 x10^3/uL (0.0-1.3); Monocytes % 11.7 % (0.0-12.0); Neutrophil % 79.4 % (36.0-66.0); Platelet Count 200 x10^3/uL (150-450); Red Blood Count 3.96 x10^6/uL (4.1-5.4); Red Cell Distribution Width 13.4 % (11.5-14.0); White Blood Count 15.7 x10^3/uL (4.0-10.5)
[2023-09-11 04:54] LABS: ALBUMIN 2.5 g/dL (3.5-5.0); ANION GAP 10.3 MEQ/L (5-15); BILIRUBIN,TOTAL 1.9 mg/dL (0.2-1.3); Calcium 7.7 mg/dL (8.4-10.2); Creatinine 1 0.78 mg/dL (0.52-1.04); EST GLOMERULAR FILTRATION RATE 86.9 ML/MIN; Potassium 3.5 mmol/L (3.5-5.1); Total Protein 5.6 g/dL (6.3-8.2)
[2023-09-11 06:11] LABS: HBsAg Screen Negative (Negative); HCV Ab Non Reactive (Non Reactive); Hep A Ab, IgM Negative (Negative); Hep B Core Ab, IgM Negative (Negative)
[2023-09-11 06:19] LABS: Slide Review 1 YES
[2023-09-11] MEDS: Sodium Chloride 0.9% 1000 ML 1,000 ML IV STA (07:47)
--- NOTE | 2023-09-11 08:33 | XRAY ---
Indication: Short of breath. Comparison: January 19, 2007 Portable chest less inflated with new right mid to lower lung infiltrates, pulmonary edema, and tiny bibasilar effusions. Heart not enlarged. Bony thorax intact again with osteopenia. Stable incidental tiny left lung calcified granulomas and left renal macrocalcification.
[2023-09-11] MEDS: Lasix 40 MG/4 ML IV ONE ×2 (09:32→17:25)
--- NOTE | 2023-09-11 10:39 | PCM.NOTE ---
Date and Time: 09/11/23 1029 Subjective Assessment: Ms. Diaz is a 58 year old female admitted with sepsis secondary to pyelonephritis after presenting to ED 09/09/23 with a week history of right flank pain, subjective fevers, chills, weakness, poor appetite, and urinary urgency. CT imaging consistent with right nephritis. U-cult growing gram negative orga nism. 09/10/23: Overnight events noted, patient febrile with TMAX 101.6. She is afebrile this morning. Endorses right CVA tenderness, nausea, and urgency. She reported non- radiating intermittent left-sided chest pain this morning. Onset was about 5 a.m. She describes the pain as dull/aching. No aggravating/relieving factors. No associated symptoms. EKG showing sinus tachycardia with HR 104. Troponins have all been WNL. Denies cough, sob, abdominal pain, KELLY, dizziness, N/V/D. 09/11/23: Met and examined patient bedside. Febrile this morning with non-productive cough and increased shortness of breath. Lung sounds coarse on auscultation. CXR showing with new right mid to lower lung infiltrates, pulmonary edema, and tiny bibasilar effusions. She was given lasix, IVF stopped. She reports her breathing has improved. Ucult with Ecoli, sensitive to Levaquin. Will add Flagyl for mild distention of her GB. <YAYO DE LA CRUZ - Last Filed: 09/11/23 10:55> Date and Time: 09/11/232130 <SOLOMON CHARLES - Last Filed: 09/11/23 21:33> - Review of Systems Constitutional: Fever Eyes: No Symptoms Ears, Nose, & Throat: No Symptoms Respiratory: Cough, Short Of Breath Cardiac: No Symptoms Abdominal/Gastrointestinal: No Symptoms Genitourinary Symptoms: No Symptoms Musculoskeletal: Back Pain Skin: No Symptoms Neurological: No Symptoms Psychological: No Symptoms Endocrine: No Symptoms Hematologic/Lymphatic: No Symptoms Immunological/Allergic: No Symptoms <YAYO DE LA CRUZ - Last Filed: 09/11/23 10:55> Objective Exam General Appearance: no apparent distress Neurologic Exam: alert, oriented x 3, cooperative Skin Exam: pale Eye Exam: PERRL Ears, Nose, Throat Exam: normal ENT inspection Neck Exam: normal inspection Respiratory Exam: diminished breath sounds, crackles/rales Cardiovascular Exam: tachycardia Gastrointestinal/Abdomen Exam: soft, normal bowel sounds Extremity Exam: normal inspection Back Exam: CVA tenderness Pelvic Exam: deferred Rectal Exam: deferred <YAYO DE LA CRUZ - Last Filed: 09/11/23 10:55> Objective Data Vital Signs: Vital Signs - 24 hr Temp Pulse Resp BP Pulse Ox 09/11/23 09:13 113 H 25 H 142/85 90 L 09/11/23 07:13 90 L 09/11/23 06:50 101.4 F 128 H 28 H 142/79 90 L 09/11/23 04:00 98.9 F 98 H 15 98/59 93 L 09/11/23 00:00 16 09/10/23 23:55 101.9 F 128 H 16 159/73 90 L 09/10/23 19:53 15 09/10/23 19:45 92 L 09/10/23 18:37 99.1 F 109 H 15 121/60 86 L 09/10/23 16:00 99.5 F 103 H 20 101/59 91 L 09/10/23 11:38 98.1 F 102 H 22 95/52 88 L Pain Assessment - Last Documented Pain Intensity [Right Back] 6 Pain Intensity 7 Pain Scale Used 0-10 Pain Scale Intake and Output: Intake & Output 09/08/23 09/09/23 09/10/23 09/11/23 11:59 11:59 11:59 11:59 Intake Total 960 1530 Output Total 500 Balance 460 1530 Weight 57.6 kg Lab Results: Lab Results-Last 24 Hours 09/09/23 09/10/23 09/11/23 Range/Units 18:40 17:15 04:05 WBC 15.7 H (4.0-10.5) x10^3/uL RBC 3.96 L (4.1-5.4) x10^6/uL Hgb 12.2 (12.0-16.0) g/dL Hct 36.3 (35-47) % MCV 91.7 (78-100) fL MCH 30.8 (26-32) pg MCHC 33.6 (32-36) g/dL RDW 13.4 (11.5-14.0) % Plt Count 200 (150-450) x10^3/uL MPV 10.1 (7.5-11.0) fL Gran % 79.4 H (36.0-66.0) % Immature Gran % (Auto) 1.9 H (0.00-0.4) % Nucleat RBC Rel Count 0.0 (0.00-0.1) % Eos # (Auto) 0 (0-0.5) x10^3/uL Immature Gran # (Auto) 0.29 H (0.00-0.03) x10^3u/L Absolute Lymphs (auto) 1.06 (1.0-4.6) x10^3/uL Absolute Monos (auto) 1.83 H (0.0-1.3) x10^3/uL Absolute Nucleated RBC 0.00 (0.00-0.01) x10^3u/L Lymphocytes % 6.8 L (24.0-44.0) % Monocytes % 11.7 (0.0-12.0) % Eosinophils % 0.0 (0.00-5.0) % Basophils % 0.2 (0.0-0.4) % Absolute Granulocytes 12.46 H (1.4-6.9) x10^3/uL Basophils # 0.03 (0-0.4) x10^3/uL D-Dimer (0.0-0.50) mg/L Sodium 131 L (135-145) mmol/L Potassium 3.9 (3.5-5.1) mmol/L Chloride 105 (98-107) mmol/L Carbon Dioxide 20 L (22-30) mmol/L Anion Gap 10.6 (5-15) MEQ/L BUN 14 (7-17) mg/dL Creatinine 0.91 (0.52-1.04) mg/dL Estimated GFR 72.2 ML/MIN Glucose 126 H (74-106) mg/dL Calcium 8.0 L (8.4-10.2) mg/dL Total Bilirubin 2.60 H (0.2-1.3) mg/dL AST 38 H (14-36) U/L ALT 62 H (0-35) U/L Alkaline Phosphatase 150 H (38-126) U/L Serum Total Protein 5.9 L (6.3-8.2) g/dL Albumin 2.8 L (3.5-5.0) g/dL Hepatitis A IgM Ab Negative (Negative) Hep Bs Antigen Negative (Negative) Hep B Core IgM Ab Negative (Negative) Hep C Ab Signal/Cutoff Non Reactive (Non Reactive) Hepatitis C Interp Comment (.) Slides for Path Review YES 09/11/23 09/11/23 Range/Units 04:05 09:25 WBC (4.0-10.5) x10^3/uL RBC (4.1-5.4) x10^6/uL Hgb (12.0-16.0) g/dL Hct (35-47) % MCV (78-100) fL MCH (26-32) pg MCHC (32-36) g/dL RDW (11.5-14.0) % Plt Count (150-450) x10^3/uL MPV (7.5-11.0) fL Gran % (36.0-66.0) % Immature Gran % (Auto) (0.00-0.4) % Nucleat RBC Rel Count (0.00-0.1) % Eos # (Auto) (0-0.5) x10^3/uL Immature Gran # (Auto) (0.00-0.03) x10^3u/L Absolute Lymphs (auto) (1.0-4.6) x10^3/uL Absolute Monos (auto) (0.0-1.3) x10^3/uL Absolute Nucleated RBC (0.00-0.01) x10^3u/L Lymphocytes % (24.0-44.0) % Monocytes % (0.0-12.0) % Eosinophils % (0.00-5.0) % Basophils % (0.0-0.4) % Absolute Granulocytes (1.4-6.9) x10^3/uL Basophils # (0-0.4) x10^3/uL D-Dimer 3.46 H* (0.0-0.50) mg/L Sodium 134 L (135-145) mmol/L Potassium 3.5 (3.5-5.1) mmol/L Chloride 108 H (98-107) mmol/L Carbon Dioxide 19 L (22-30) mmol/L Anion Gap 10.3 (5-15) MEQ/L BUN 12 (7-17) mg/dL Creatinine 0.78 (0.52-1.04) mg/dL Estimated GFR 86.9 ML/MIN Glucose 111 H (74-106) mg/dL Calcium 7.7 L (8.4-10.2) mg/dL Total Bilirubin 1.90 H (0.2-1.3) mg/dL AST 41 H (14-36) U/L ALT 61 H (0-35) U/L Alkaline Phosphatase 175 H (38-126) U/L Serum Total Protein 5.6 L (6.3-8.2) g/dL Albumin 2.5 L (3.5-5.0) g/dL Hepatitis A IgM Ab (Negative) Hep Bs Antigen (Negative) Hep B Core IgM Ab (Negative) Hep C Ab Signal/Cutoff (Non Reactive) Hepatitis C Interp (.) Slides for Path Review Radiology Exams: Radiology Procedures Category Date Time Status ABDOMEN AND PELVIS W/0 CONTRAS [CT] Stat Exams 09/09/23 14:28 Completed CHEST 1 VIEW (PORTABLE) Urgent Exams 09/11/23 07:39 Completed US ABDOMEN LIMITED [ABDOMINAL-LIMITED] [US] Urgent Exams 09/10/23 10:34 Completed Multi-Disciplinary Progress Notes: Multi-Disciplinary Progress Notes 09/11/23 10:26 Case Management Note by Kenzie Edmond S/W PATIENT- SHE CONTINUES TO DENY ANY NEW NEEDS AT TIME OF DC. HE PLANS TO RETURN HOME TO HER PLF AT TIME OF DC Initialized on 09/11/23 10:26 - END OF NOTE <YAYO DE LA CRUZ - Last Filed: 09/11/23 10:55> Vital Signs: Vital Signs - 24 hr Temp Pulse Resp BP Pulse Ox 09/11/23 19:00 98.0 F 92 H 21 131/83 99 09/11/23 18:48 94 L 09/11/23 16:00 20 09/11/23 15:00 98.6 F 98 H 20 130/80 99 09/11/23 11:24 95.8 F 96 H 19 108/59 99 09/11/23 10:00 25 H 09/11/23 09:13 113 H 25 H 142/85 90 L 09/11/23 07:13 90 L 09/11/23 06:50 101.4 F 128 H 28 H 142/79 90 L 09/11/23 04:00 98.9 F 98 H 15 98/59 93 L 09/11/23 00:00 16 09/10/23 23:55 101.9 F 128 H 16 159/73 90 L Pain Assessment - Last Documented Pain Intensity [Right Back] 6 Pain Intensity 5 Pain Scale Used 0-10 Pain Scale Intake and Output: Intake & Output 09/09/23 09/10/23 09/11/23 09/12/23 11:59 11:59 11:59 11:59 Intake Total 960 1530 1170 Output Total 500 200 600 Balance 460 1330 570 Weight 57.6 kg Lab Results: Lab Results-Last 24 Hours 09/09/23 09/11/23 09/11/23 Range/Units 18:40 04:05 04:05 WBC 15.7 H (4.0-10.5) x10^3/uL RBC 3.96 L (4.1-5.4) x10^6/uL Hgb 12.2 (12.0-16.0) g/dL Hct 36.3 (35-47) % MCV 91.7 (78-100) fL MCH 30.8 (26-32) pg MCHC 33.6 (32-36) g/dL RDW 13.4 (11.5-14.0) % Plt Count 200 (150-450) x10^3/uL MPV 10.1 (7.5-11.0) fL Gran % 79.4 H (36.0-66.0) % Immature Gran % (Auto) 1.9 H (0.00-0.4) % Nucleat RBC Rel Count 0.0 (0.00-0.1) % Eos # (Auto) 0 (0-0.5) x10^3/uL Immature Gran # (Auto) 0.29 H (0.00-0.03) x10^3u/L Absolute Lymphs (auto) 1.06 (1.0-4.6) x10^3/uL Absolute Monos (auto) 1.83 H (0.0-1.3) x10^3/uL Absolute Nucleated RBC 0.00 (0.00-0.01) x10^3u/L Lymphocytes % 6.8 L (24.0-44.0) % Monocytes % 11.7 (0.0-12.0) % Eosinophils % 0.0 (0.00-5.0) % Basophils % 0.2 (0.0-0.4) % Absolute Granulocytes 12.46 H (1.4-6.9) x10^3/uL Basophils # 0.03 (0-0.4) x10^3/uL D-Dimer (0.0-0.50) mg/L Sodium 134 L (135-145) mmol/L Potassium 3.5 (3.5-5.1) mmol/L Chloride 108 H (98-107) mmol/L Carbon Dioxide 19 L (22-30) mmol/L Anion Gap 10.3 (5-15) MEQ/L BUN 12 (7-17) mg/dL Creatinine 0.78 (0.52-1.04) mg/dL Estimated GFR 86.9 ML/MIN Glucose 111 H (74-106) mg/dL Calcium 7.7 L (8.4-10.2) mg/dL Total Bilirubin 1.90 H (0.2-1.3) mg/dL AST 41 H (14-36) U/L ALT 61 H (0-35) U/L Alkaline Phosphatase 175 H (38-126) U/L Serum Total Protein 5.6 L (6.3-8.2) g/dL Albumin 2.5 L (3.5-5.0) g/dL Hepatitis A IgM Ab Negative (Negative) Hep Bs Antigen Negative (Negative) Hep B Core IgM Ab Negative (Negative) Hep C Ab Signal/Cutoff Non Reactive (Non Reactive) Hepatitis C Interp Comment (.) Slides for Path Review YES 09/11/23 Range/Units 09:25 WBC (4.0-10.5) x10^3/uL RBC (4.1-5.4) x10^6/uL Hgb (12.0-16.0) g/dL Hct (35-47) % MCV (78-100) fL MCH (26-32) pg MCHC (32-36) g/dL RDW (11.5-14.0) % Plt Count (150-450) x10^3/uL MPV (7.5-11.0) fL Gran % (36.0-66.0) % Immature Gran % (Auto) (0.00-0.4) % Nucleat RBC Rel Count (0.00-0.1) % Eos # (Auto) (0-0.5) x10^3/uL Immature Gran # (Auto) (0.00-0.03) x10^3u/L Absolute Lymphs (auto) (1.0-4.6) x10^3/uL Absolute Monos (auto) (0.0-1.3) x10^3/uL Absolute Nucleated RBC (0.00-0.01) x10^3u/L Lymphocytes % (24.0-44.0) % Monocytes % (0.0-12.0) % Eosinophils % (0.00-5.0) % Basophils % (0.0-0.4) % Absolute Granulocytes (1.4-6.9) x10^3/uL Basophils # (0-0.4) x10^3/uL D-Dimer 3.46 H* (0.0-0.50) mg/L Sodium (135-145) mmol/L Potassium (3.5-5.1) mmol/L Chloride (98-107) mmol/L Carbon Dioxide (22-30) mmol/L Anion Gap (5-15) MEQ/L BUN (7-17) mg/dL Creatinine (0.52-1.04) mg/dL Estimated GFR ML/MIN Glucose (74-106) mg/dL Calcium (8.4-10.2) mg/dL Total Bilirubin (0.2-1.3) mg/dL AST (14-36) U/L ALT (0-35) U/L Alkaline Phosphatase (38-126) U/L Serum Total Protein (6.3-8.2) g/dL Albumin (3.5-5.0) g/dL Hepatitis A IgM Ab (Negative) Hep Bs Antigen (Negative) Hep B Core IgM Ab (Negative) Hep C Ab Signal/Cutoff (Non Reactive) Hepatitis C Interp (.) Slides for Path Review Radiology Exams: Radiology Procedures Category Date Time Status CHEST 1 VIEW (PORTABLE) Urgent Exams 09/11/23 07:39 Completed US ABDOMEN LIMITED [ABDOMINAL-LIMITED] [US] Urgent Exams 09/10/23 10:34 Completed Multi-Disciplinary Progress Notes: Multi-Disciplinary Progress Notes 09/11/23 11:17 Respiratory Note by Georgina Lr SPO2 99% ON 6LPM OXYMASK. DEC TO 4LPM Initialized on 09/11/23 11:17 - END OF NOTE 09/11/23 10:27 Respiratory Note by Georgina Lr 09:10 Changed patient's oxygen device from nasal cannula to oxygen mask on an oxygen flow of 6L. Patient's current SpO2 is 93% and heart rate is 107 bpm. Initialized on 09/11/23 10:27 - END OF NOTE 09/11/23 10:26 Case Management Note by Kenzie Edmond S/W PATIENT- SHE CONTINUES TO DENY ANY NEW NEEDS AT TIME OF DC. HE PLANS TO RETURN HOME TO HER PLF AT TIME OF DC Initialized on 09/11/23 10:26 - END OF NOTE <SOLOMON CHARLES - Last Filed: 09/11/23 21:33> Assessment/Plan (1) Sepsis Current Visit: Yes Status: Acute Assessment & Plan: -Secondary to pyelonephritis -CT showing . Prominent and edematous right kidney with perinephric stranding. Chronic findings including atrophic left kidney with chunky macro-calculi and arteriosclerotic disease -blood and urine cxs ordered -Lactate drawn. Repeat lactate will be drawn in initial >2mmol/L If subsequent lactate elevated, trend until WNL -IVF bolus-CBC, BMP, Mg, Phos in am -continue appropriate baseline home medications -DVT prophylaxis-lovenox 40 mg SQ daily -Will admin vasopressors if hypotensive after IV admin (MAP <65 or SBP <90). 2: -Continue levaquin -LA wnl -WBC trending down 20.2<21.6 3: -WBC now at 15.7<20.6<21.6 -Febrile this morning, continue supportive therapies -Ucult with Ecoli, sensitive to Levaquin -Flagyl added, GB distention (2) Hyponatremia Current Visit: Yes Status: Acute Assessment & Plan: -most likely secondary to hypovolemia -IVF -Tele -Monitor BMP Q4H 3: -improving, continue IVF -Daily CMP 09/10: -stable Code(s): E87.1 - HYPO-OSMOLALITY AND HYPONATREMIA (3) Pyelonephritis Current Visit: Yes Status: Acute Assessment & Plan: -CT as described above, consistent with right nephritis -Levaquin started in ED, will continue, follow culture, patient with penicillin allergy (anaphylactic reaction) -IVF -Urine/blood cult pending 09/09: -Continue levaquin -Ucult with gram - organism, follow culture -IVF Code(s): N12 - TUBULO-INTERSTITIAL NEPHRITIS, NOT SPCF ACUTE OR CHRONIC (4) Transaminitis Current Visit: Yes Status: Acute Assessment & Plan: -Liver unremarkable on CT -Reactive vs infective process -Hep davis -Continue to monitor and trend 09/09: -AST/ALT/ALK phos trending down, Tbili trending up -Hep davis pending, no h/o of liver disease - most likely reactive process -RUQ US 09/10: -US showing GB distention - this could be secondary to sepsis, will add flagyl, -LFTs and Tbili trending down, will continue to monitor (5) infiltrate noted on imaging study/pleural effusion -cxr showing new right mid to lower lung infiltrates, pulmonary edema, and tiny bibasilar effusions. -RT eval -IS/flutter -Lasix -DC IVF -Continue levaquin VTE lovenox PPI protonix Dispo 1-2 days Code(s): R74.01 - (2) Hyponatremia Current Visit: Yes Status: Acute Code(s): E87.1 - HYPO-OSMOLALITY AND HYPONATREMIA (3) Pyelonephritis Current Visit: Yes Status: Acute Code(s): N12 - TUBULO-INTERSTITIAL NEPHRITIS, NOT SPCF ACUTE OR CHRONIC (4) Transaminitis Current Visit: Yes Status: Acute Code(s): R74.01 - ELEVATION OF LEVELS OF LIVER TRANSAMINASE LEVELS (5) Infiltrate noted on imaging study Current Visit: Yes Status: Acute Code(s): R93.89 - ABNORMAL FINDINGS ON DX IMAGING OF OTH BODY STRUCTURES (6) Pleural effusion Current Visit: Yes Status: Acute Code(s): J90 - PLEURAL EFFUSION, NOT ELSEWHERE CLASSIFIED <YAYO DE LA CRUZ - Last Filed: 09/11/23 10:55> SUSHMA Encounter - SUSHMA Encounter Attestation SUSHMA Encounter Attestation: "IhavepersonallyseenandexCynthiaOWATONNAJATINDER andhavediscussed pertinent aspects of their care with Yayo Muniz agree with the history, physical exam (any modifications based on my personal exam will be noted below), assessment, and plan as outlined in original note. Please see immediately below for my summary of findings and additional assessment and plan along with any meaningful corrections/explanations to the Subjective/Objective portions of the SUSHMA note will be noted." My portion of the encounter took place via telemedicine. -Patient was hypoxic today with volume overload secondary to fluids she received for sepsis. Improved after IV lasix. Increase in T bili and distended gal lbladder on US concerning for acalculous cholecystitis. Flagyl added. Continue Levaquin. <SOLOMON CHARLES - Last Filed: 09/11/23 21:33>
[2023-09-11] MEDS: FLAGYL 500 MG IVPB 500 MG/100 ML BAG IV SCH (11:15)
[2023-09-12 04:32] LABS: Absolute Neutrophil Ct (ANC) 10.02 x10^3/uL (1.4-6.9); BASOPHIL % 0.3 % (0.0-0.4); Basophil (Absolute #) 0.04 x10^3/uL (0-0.4); Eosinophil % 0.1 % (0.00-5.0); Eosinophil (Absolute #) 0.01 x10^3/uL (0-0.5); Hematocrit 35.9 % (35-47); Hemoglobin 12.4 g/dL (12.0-16.0); IMMATURE GRAN # 0.12 x10^3u/L (0.00-0.03); IMMATURE GRAN % 0.9 % (0.00-0.4); Lymphocyte (Absolute #) 1.34 x10^3/uL (1.0-4.6); Lymphocytes % 9.9 % (24.0-44.0); Mean Cell Volume 87.3 fL (78-100); Mean Corpuscular Hemoglobin 30.2 pg (26-32); Mean Corpuscular Hgb Concent. 34.5 g/dL (32-36); Mean Platelet Volume 10.2 fL (7.5-11.0); Monocyte (Absolute #) 2.01 x10^3/uL (0.0-1.3); Monocytes % 14.8 % (0.0-12.0); Platelet Count 213 x10^3/uL (150-450); Red Blood Count 4.11 x10^6/uL (4.1-5.4); White Blood Count 13.5 x10^3/uL (4.0-10.5)
[2023-09-12 04:48] LABS: ALBUMIN 2.9 g/dL (3.5-5.0); ANION GAP 9.3 MEQ/L (5-15); Calcium 7.8 mg/dL (8.4-10.2); Creatinine 1 0.85 mg/dL (0.52-1.04); EST GLOMERULAR FILTRATION RATE 78.4 ML/MIN; Total Protein 6.1 g/dL (6.3-8.2)
[2023-09-12 04:54] LABS: Potassium 2.8 mmol/L (3.5-5.1)
[2023-09-12] MEDS: MAGNESIUM SULF 2 G/50 ML BAG 2 GM/50 ML PIGGYBACK IV ONE (08:08)
--- NOTE | 2023-09-12 08:57 | PCM.NOTE ---
Date and Time: 09/12/2349 Subjective Assessment: Ms. Diaz is a 58 year old female admitted with sepsis secondary to pyelonephritis. Labs also noting transaminitis with TBili up to 3.[address] imaging consistent with right nephritis. US of the abdomen noting GB distention with concern for acalculous cholecystitis. Urine culture with ECOLI. During hospital course patient became hypoxic with cxr showing fluid overload. This is most likely secondary to fluid bolus she received for sepsis which improved with lasix. She has received IP treatment with Levaquin and Zosyn with noted improvement. She is no longer having CVA tenderness. She has been afebrile overnight. Labs are improving, TBILI now WNL. She did have hypokalemia and hypomagnesemia this morning and is receiving replenishment. She endorses overall improvement today, dsypnea improved. Will try to wean oxygen today. - Review of Systems Constitutional: Weakness Eyes: No Symptoms Ears, Nose, & Throat: No Symptoms Respiratory: Short Of Breath Cardiac: No Symptoms Abdominal/Gastrointestinal: No Symptoms Genitourinary Symptoms: No Symptoms Musculoskeletal: No Symptoms Skin: No Symptoms Neurological: No Symptoms Psychological: No Symptoms Endocrine: No Symptoms Hematologic/Lymphatic: No Symptoms Immunological/Allergic: No Symptoms Objective Exam General Appearance: no apparent distress Neurologic Exam: alert, oriented x 3, cooperative Skin Exam: normal color Eye Exam: PERRL Ears, Nose, Throat Exam: normal ENT inspection Neck Exam: normal inspection Respiratory Exam: crackles/rales Cardiovascular Exam: regular rate/rhythm, normal heart sounds Gastrointestinal/Abdomen Exam: soft, normal bowel sounds Extremity Exam: normal inspection Back Exam: normal inspection Pelvic Exam: deferred Objective Data Vital Signs: Vital Signs - 24 hr Temp Pulse Resp BP Pulse Ox 09/12/23 08:02 98 09/12/23 06:50 98.8 F 94 H 26 H 100/56 99 09/12/23 04:00 20 09/12/23 03:00 98.9 F 102 H 21 113/57 09/12/23 00:00 20 09/11/23 23:00 98.2 F 113 H 18 137/71 93 L 09/11/23 20:00 21 09/11/23 19:00 98.0 F 92 H 21 131/83 99 09/11/23 18:48 94 L 09/11/23 16:00 20 09/11/23 15:00 98.6 F 98 H 20 130/80 99 09/11/23 11:24 95.8 F 96 H 19 108/59 99 09/11/23 10:00 25 H 09/11/23 09:13 113 H 25 H 142/85 90 L Pain Assessment - Last Documented Pain Intensity [Right Back] 6 Pain Intensity 0 Pain Scale Used 0-10 Pain Scale Intake and Output: Intake & Output 09/09/23 09/10/23 09/11/23 09/12/23 11:59 11:59 11:59 11:59 Intake Total 960 1530 2510 Output Total 242 027 9006 Balance 460 1330 -990 Weight 57.6 kg Lab Results: Lab Results-Last 24 Hours 09/09/23 09/11/23 09/12/23 Range/Units 18:40 09:25 04:10 WBC 13.5 H (4.0-10.5) x10^3/uL RBC 4.11 (4.1-5.4) x10^6/uL Hgb 12.4 (12.0-16.0) g/dL Hct 35.9 (35-47) % MCV 87.3 (78-100) fL MCH 30.2 (26-32) pg MCHC 34.5 (32-36) g/dL RDW 13.0 (11.5-14.0) % Plt Count 213 (150-450) x10^3/uL MPV 10.2 (7.5-11.0) fL Gran % 74.0 H (36.0-66.0) % Immature Gran % (Auto) 0.9 H (0.00-0.4) % Nucleat RBC Rel Count 0.0 (0.00-0.1) % Eos # (Auto) 0.01 (0-0.5) x10^3/uL Immature Gran # (Auto) 0.12 H (0.00-0.03) x10^3u/L Absolute Lymphs (auto) 1.34 (1.0-4.6) x10^3/uL Absolute Monos (auto) 2.01 H (0.0-1.3) x10^3/uL Absolute Nucleated RBC 0.00 (0.00-0.01) x10^3u/L Lymphocytes % 9.9 L (24.0-44.0) % Monocytes % 14.8 H (0.0-12.0) % Eosinophils % 0.1 (0.00-5.0) % Basophils % 0.3 (0.0-0.4) % Absolute Granulocytes 10.02 H (1.4-6.9) x10^3/uL Basophils # 0.04 (0-0.4) x10^3/uL D-Dimer 3.46 H* (0.0-0.50) mg/L Sodium (135-145) mmol/L Potassium (3.5-5.1) mmol/L Chloride (98-107) mmol/L Carbon Dioxide (22-30) mmol/L Anion Gap (5-15) MEQ/L BUN (7-17) mg/dL Creatinine (0.52-1.04) mg/dL Estimated GFR ML/MIN Glucose (74-106) mg/dL Calcium (8.4-10.2) mg/dL Magnesium (1.6-2.3) mg/dL Total Bilirubin (0.2-1.3) mg/dL AST (14-36) U/L ALT (0-35) U/L Alkaline Phosphatase (38-126) U/L Serum Total Protein (6.3-8.2) g/dL Albumin (3.5-5.0) g/dL Hepatitis A IgM Ab Negative (Negative) Hep Bs Antigen Negative (Negative) Hep B Core IgM Ab Negative (Negative) Hep C Ab Signal/Cutoff Non Reactive (Non Reactive) Hepatitis C Interp Comment (.) 09/12/23 09/12/23 Range/Units 04:10 04:56 WBC (4.0-10.5) x10^3/uL RBC (4.1-5.4) x10^6/uL Hgb (12.0-16.0) g/dL Hct (35-47) % MCV (78-100) fL MCH (26-32) pg MCHC (32-36) g/dL RDW (11.5-14.0) % Plt Count (150-450) x10^3/uL MPV (7.5-11.0) fL Gran % (36.0-66.0) % Immature Gran % (Auto) (0.00-0.4) % Nucleat RBC Rel Count (0.00-0.1) % Eos # (Auto) (0-0.5) x10^3/uL Immature Gran # (Auto) (0.00-0.03) x10^3u/L Absolute Lymphs (auto) (1.0-4.6) x10^3/uL Absolute Monos (auto) (0.0-1.3) x10^3/uL Absolute Nucleated RBC (0.00-0.01) x10^3u/L Lymphocytes % (24.0-44.0) % Monocytes % (0.0-12.0) % Eosinophils % (0.00-5.0) % Basophils % (0.0-0.4) % Absolute Granulocytes (1.4-6.9) x10^3/uL Basophils # (0-0.4) x10^3/uL D-Dimer (0.0-0.50) mg/L Sodium 130 L (135-145) mmol/L Potassium 2.8 L* (3.5-5.1) mmol/L Chloride 96 L (98-107) mmol/L Carbon Dioxide 27 (22-30) mmol/L Anion Gap 9.3 (5-15) MEQ/L BUN 12 (7-17) mg/dL Creatinine 0.85 (0.52-1.04) mg/dL Estimated GFR 78.4 ML/MIN Glucose 115 H (74-106) mg/dL Calcium 7.8 L (8.4-10.2) mg/dL Magnesium 1.5 L (1.6-2.3) mg/dL Total Bilirubin 1.00 (0.2-1.3) mg/dL AST 39 H (14-36) U/L ALT 62 H (0-35) U/L Alkaline Phosphatase 200 H (38-126) U/L Serum Total Protein 6.1 L (6.3-8.2) g/dL Albumin 2.9 L (3.5-5.0) g/dL Hepatitis A IgM Ab (Negative) Hep Bs Antigen (Negative) Hep B Core IgM Ab (Negative) Hep C Ab Signal/Cutoff (Non Reactive) Hepatitis C Interp (.) Radiology Exams: Radiology Procedures Category Date Time Status CHEST 1 VIEW (PORTABLE) Urgent Exams 09/11/23 07:39 Completed US ABDOMEN LIMITED [ABDOMINAL-LIMITED] [US] Urgent Exams 09/10/23 10:34 Completed Multi-Disciplinary Progress Notes: Multi-Disciplinary Progress Notes 09/11/23 11:17 Respiratory Note by Georgina Lr SPO2 99% ON 6LPM OXYMASK. DEC TO 4LPM Initialized on 09/11/23 11:17 - END OF NOTE 09/11/23 10:27 Respiratory Note by Georgina Lr 09:10 Changed patient's oxygen device from nasal cannula to oxygen mask on an oxygen flow of 6L. Patient's current SpO2 is 93% and heart rate is 107 bpm. Initialized on 09/11/23 10:27 - END OF NOTE 09/11/23 10:26 Case Management Note by Kenzie Edmond S/W PATIENT- SHE CONTINUES TO DENY ANY NEW NEEDS AT TIME OF DC. HE PLANS TO RETURN HOME TO HER PLF AT TIME OF DC Initialized on 09/11/23 10:26 - END OF NOTE Assessment/Plan (1) Sepsis Current Visit: Yes Status: Acute Assessment & Plan: -Secondary to pyelonephritis -CT showing . Prominent and edematous right kidney with perinephric stranding. Chronic findings including atrophic left kidney with chunky macro-calculi and arteriosclerotic disease -blood and urine cxs ordered -Lactate drawn. Repeat lactate will be drawn in initial >2mmol/L If subsequent lactate elevated, trend until WNL -IVF bolus-CBC, BMP, Mg, Phos in am -continue appropriate baseline home medications -DVT prophylaxis-lovenox 40 mg SQ daily -Will admin vasopressors if hypotensive after IV admin (MAP <65 or SBP <90). 09/08: -Continue levaquin -LA wnl -WBC trending down 20.2<21.6 09/09: -WBC now at 15.7<20.6<21.6 -Febrile this morning, continue supportive therapies -Ucult with Ecoli, sensitive to Levaquin -Flagyl added, GB distention 09/10: -WBC 13.5<15.7<20.6<21.6 - improving -Afebrile x 24 hours -Continue levaquin/flagyl -Bcult with NGTD (2) Hyponatremia Current Visit: Yes Status: Acute Assessment & Plan: -most likely secondary to hypovolemia -IVF -Tele -Monitor BMP Q4H 09/09: -improving, continue IVF -Daily CMP 09/10: -stable 09/10: -Secondary to hypervolemia, patient received lasix, will continue to monitor Code(s): E87.1 - HYPO-OSMOLALITY AND HYPONATREMIA (3) Pyelonephritis Current Visit: Yes Status: Acute Assessment & Plan: -CT as described above, consistent with right nephritis -Levaquin started in ED, will continue, follow culture, patient with penicillin allergy (anaphylactic reaction) -IVF -Urine/blood cult pending 09/09: -Continue levaquin -Ucult with gram - organism, follow culture -IVF 09/10: -EColi on Ucult sensitive to Levaquin ,will continue -Bcult with NGTD Code(s): N12 - TUBULO-INTERSTITIAL NEPHRITIS, NOT SPCF ACUTE OR CHRONIC (4) Transaminitis Current Visit: Yes Status: Acute Assessment & Plan: -Liver unremarkable on CT -Reactive vs infective process -Hep davis -Continue to monitor and trend 09/09: -AST/ALT/ALK phos trending down, Tbili trending up -Hep davis pending, no h/o of liver disease - most likely reactive process -RUQ US 09/10: -US showing GB distention - this could be secondary to sepsis, will add flagyl, -LFTs and Tbili trending down, will continue to monitor 09/11: -Improving, Tbili now WNL, LFTS continue to trend down -Hep davis negative (5) infiltrate noted on imaging study/pleural effusion -cxr showing new right mid to lower lung infiltrates, pulmonary edema, and tiny bibasilar effusions. -RT eval -IS/flutter -Lasix -DC IVF -Continue levaquin 09/11 -improving, wean oxygen -Continue IS/Flutter -Nebs/INH per RT (6) Hypokalemia -will replenish per protocol -Continue tele (7) Hypomagnesemia -2g mag sulfate, continue to monitor VTE lovenox PPI protonix Dispo 1-2 days Code(s): R74.01 - (2) Hyponatremia Current Visit: Yes Status: Acute Code(s): E87.1 - HYPO-OSMOLALITY AND HYPONATREMIA (3) Pyelonephritis Current Visit: Yes Status: Acute Code(s): N12 - TUBULO-INTERSTITIAL NEPHRITIS, NOT SPCF ACUTE OR CHRONIC (4) Transaminitis Current Visit: Yes Status: Acute Code(s): R74.01 - ELEVATION OF LEVELS OF LIVER TRANSAMINASE LEVELS (5) Infiltrate noted on imaging study Current Visit: Yes Status: Acute Code(s): R93.89 - ABNORMAL FINDINGS ON DX IMAGING OF OTH BODY STRUCTURES (6) Pleural effusion Current Visit: Yes Status: Acute Code(s): J90 - PLEURAL EFFUSION, NOT ELSEWHERE CLASSIFIED (7) Hypokalemia Current Visit: Yes Status: Acute Code(s): E87.6 - HYPOKALEMIA (8) Hypomagnesemia Current Visit: Yes Status: Acute Code(s): E83.42 - HYPOMAGNESEMIA
[2023-09-12] MEDS: POTASSIUM CHLORIDE 20 mEq IN WATER 100ML 100 ML IV SCH (09:53)
[2023-09-12] MEDS: ENOXAPARIN SODIUM SQ SCH (09:55)
[2023-09-12] MEDS ORDERED: Lasix 40 MG/4 ML IV ONE (10:39)
[2023-09-12 11:37] VITALS: PULSE 91
[2023-09-12] MEDS: Levofloxacin 500 MG Tablet PO SCH (12:12)
--- NOTE | 2023-09-12 12:40 | PCM.DS ---
Discharge Summary Date of Admission: 09/09/23 17:16 Date of Discharge: 09/12/23 Admitting Physician: SOLOMON CHARLES MD Primary Care Provider: NO FAMILY DOCTOR Allergies Allergies Penicillins Allergy (Verified 09/09/23 14:04) Hospital Summary - Hospital Course Hospital Course: Ms. Diaz is a 58 year old female admitted with sepsis secondary to pyel onephritis. Labs also noting transaminitis with TBili up to 3.[address] imaging consistent with right nephritis. US of the abdomen noting GB distention with concern for acalculous cholecystitis. Urine culture with ECOLI. During hospital course patient became hypoxic with cxr showing infiltrate/ fluid overload. This is most likely secondary to fluid bolus she received for sepsis which improved with lasix. She has received IP treatment with Levaquin and Flagyl with noted improvement. She is no longer having CVA tenderness. She has been afebrile overnight. Labs are improving, TBILI now WNL. She did have hypokalemia and hypomagnesemia this morning and received replenishment. Dsypnea improved. No longer abdominal pain, CVA tenderness, or dysuria. Patient is requesting discharge today. She has qualified for home oxygen. Patient to continue course of levaquin as OP. Patient provided a PCP appointment for follow up on resolution of UTI. Will need labs rechecked on Friday. Discharge Note New Diagnosis: Pyelonephritis New Medications: Levaquin Follow Up: PCP Latest Assessment & Plan (1) Sepsis Current Visit: Yes Status: Acute Assessment & Plan: -Secondary to pyelonephritis -CT showing . Prominent and edematous right kidney with perinephric stranding. Chronic findings including atrophic left kidney with chunky macro-calculi and arteriosclerotic disease -blood and urine cxs ordered -Lactate drawn. Repeat lactate will be drawn in initial >2mmol/L If subsequent lactate elevated, trend until WNL -IVF bolus-CBC, BMP, Mg, Phos in am -continue appropriate baseline home medications -DVT prophylaxis-lovenox 40 mg SQ daily -Will admin vasopressors if hypotensive after IV admin (MAP <65 or SBP <90). 2: -Continue levaquin -LA wnl -WBC trending down 20.2<21.6 3: -WBC now at 15.7<20.6<21.6 -Febrile this morning, continue supportive therapies -Ucult with Ecoli, sensitive to Levaquin -Flagyl added, GB distention 09/10: -No longer meets criteria -WBC 13.5<15.7<20.6<21.6 - improving -Afebrile x 24 hours -Continue levaquin/flagyl -Bcult with NGTD (2) Hyponatremia Current Visit: Yes Status: Acute Assessment & Plan: -most likely secondary to hypovolemia -IVF -Tele -Monitor BMP Q4H 09/09: -improving, continue IVF -Daily CMP 09/10: -stable 09/10: -Secondary to hypervolemia, patient received lasix, will continue to monitor Code(s): E87.1 - HYPO-OSMOLALITY AND HYPONATREMIA (3) Pyelonephritis Current Visit: Yes Status: Acute Assessment & Plan: -CT as described above, consistent with right nephritis -Levaquin started in ED, will continue, follow culture, patient with penicillin allergy (anaphylactic reaction) -IVF -Urine/blood cult pending 09/09: -Continue levaquin -Ucult with gram - organism, follow culture -IVF 09/10: -EColi on Ucult sensitive to Levaquin ,will continue -Bcult with NGTD Code(s): N12 - TUBULO-INTERSTITIAL NEPHRITIS, NOT SPCF ACUTE OR CHRONIC (4) Transaminitis Current Visit: Yes Status: Acute Assessment & Plan: -Liver unremarkable on CT -Reactive vs infective process -Hep davis -Continue to monitor and trend 09/09: -AST/ALT/ALK phos trending down, Tbili trending up -Hep davis pending, no h/o of liver disease - most likely reactive process -RUQ US 09/10: -US showing GB distention - this could be secondary to sepsis, will add flagyl, -LFTs and Tbili trending down, will continue to monitor 09/11: -Improving, Tbili now WNL, LFTS continue to trend down -Hep davis negative (5) infiltrate noted on imaging study/pleural effusion -cxr showing new right mid to lower lung infiltrates, pulmonary edema, and tiny bibasilar effusions. -RT eval -IS/flutter -Lasix -DC IVF -Continue levaquin 09/11 -improving, wean oxygen -Continue IS/Flutter -Nebs/INH per RT (6) Hypokalemia -will replenish per protocol -Continue tele (7) Hypomagnesemia -2g mag sulfate, continue to monitor I spent 35 minutes [id number] with the patient on the day of discharge performing discharge exam, discussing hospital stay and discharge instructions with patient and caregivers, preparation of discharge records, prescriptions & referral forms and addressing any questions/concerns the patient had as documented above. - Vitals & Intake/Output Vital Signs: Vital Signs Temperature 98.7 F 09/12/23 11:00 Pulse Rate 91 H 09/12/23 11:00 Respiratory Rate 16 09/12/23 11:00 Blood Pressure 120/72 09/12/23 11:00 O2 Sat by Pulse Oximetry 97 09/12/23 11:00 Intake & Output: Intake & Output 09/10/23 09/11/23 09/12/23 09/13/23 11:59 11:59 11:59 11:59 Intake Total 960 1530 2510 Output Total 421 891 7417 Balance 460 1330 -990 Weight 57.6 kg - Lab Result Diagrams: 09/12/23 04:10 09/12/23 13:25 Lab Results-Last 24 Hrs: Lab Results-Last 24 Hours 09/12/23 09/12/23 09/12/23 Range/Units 04:10 04:10 04:56 WBC 13.5 H (4.0-10.5) x10^3/uL RBC 4.11 (4.1-5.4) x10^6/uL Hgb 12.4 (12.0-16.0) g/dL Hct 35.9 (35-47) % MCV 87.3 (78-100) fL MCH 30.2 (26-32) pg MCHC 34.5 (32-36) g/dL RDW 13.0 (11.5-14.0) % Plt Count 213 (150-450) x10^3/uL MPV 10.2 (7.5-11.0) fL Gran % 74.0 H (36.0-66.0) % Immature Gran % (Auto) 0.9 H (0.00-0.4) % Nucleat RBC Rel Count 0.0 (0.00-0.1) % Eos # (Auto) 0.01 (0-0.5) x10^3/uL Immature Gran # (Auto) 0.12 H (0.00-0.03) x10^3u/L Absolute Lymphs (auto) 1.34 (1.0-4.6) x10^3/uL Absolute Monos (auto) 2.01 H (0.0-1.3) x10^3/uL Absolute Nucleated RBC 0.00 (0.00-0.01) x10^3u/L Lymphocytes % 9.9 L (24.0-44.0) % Monocytes % 14.8 H (0.0-12.0) % Eosinophils % 0.1 (0.00-5.0) % Basophils % 0.3 (0.0-0.4) % Absolute Granulocytes 10.02 H (1.4-6.9) x10^3/uL Basophils # 0.04 (0-0.4) x10^3/uL Sodium 130 L (135-145) mmol/L Potassium 2.8 L* (3.5-5.1) mmol/L Chloride 96 L (98-107) mmol/L Carbon Dioxide 27 (22-30) mmol/L Anion Gap 9.3 (5-15) MEQ/L BUN 12 (7-17) mg/dL Creatinine 0.85 (0.52-1.04) mg/dL Estimated GFR 78.4 ML/MIN Glucose 115 H (74-106) mg/dL Calcium 7.8 L (8.4-10.2) mg/dL Magnesium 1.5 L (1.6-2.3) mg/dL Total Bilirubin 1.00 (0.2-1.3) mg/dL AST 39 H (14-36) U/L ALT 62 H (0-35) U/L Alkaline Phosphatase 200 H (38-126) U/L Serum Total Protein 6.1 L (6.3-8.2) g/dL Albumin 2.9 L (3.5-5.0) g/dL Micro Results-Entire Visit: Microbiology 09/09/23 18:40 Blood Culture - Preliminary Blood 09/09/23 17:55 Blood Culture - Preliminary Blood 09/09/23 14:30 Urine Culture - Final Clean Catch Midstream Escherichia Coli - Radiology Exams Ordered Rad Exams-Entire Visit: Radiology Procedures Category Date Time Status CHEST 1 VIEW (PORTABLE) Urgent Exams 09/11/23 07:39 Completed - Procedures and Test Procedures and Tests throughout Hospitalization: Therapy Orders & Screens 09/09/23 17:56 Smoking Cessation Education ONCE Comment: Diagnosis: Pyelonephritis leukocytosis hyponatremia, sepsis Smoking Status: Current every day smoker Do you dip or chew tobacco: No 09/09/23 20:09 Oxygen Nasal Cannula 2 lpm Comment: Diagnosis: Pyelonephritis leukocytosis hyponatremia, sepsis 09/10/23 07:50 EKG STAT Comment: Diagnosis: Pyelonephritis leukocytosis hyponatremia, sepsis 09/11/23 10:08 Flutter Therapy UD Comment: Diagnosis: Pyelonephritis leukocytosis hyponatremia, sepsis Incentive Spirometry ROUTINE Comment: Diagnosis: Pyelonephritis leukocytosis hyponatremia, sepsis 09/11/23 10:10 Respiratory Therapy Assessment DAILY Comment: Diagnosis: Pyelonephritis leukocytosis hyponatremia, sepsis 09/12/23 09:23 Qualify for Home Oxygen ROUTINE Comment: Diagnosis: Pyelonephritis leukocytosis hyponatremia, sepsis Discharge Exam General Appearance: no apparent distress Neurologic Exam: alert, oriented x 3, cooperative Ears, Nose, Throat Exam: normal ENT inspection, moist mucous membranes Neck Exam: normal inspection Respiratory Exam: crackles/rales Cardiovascular Exam: regular rate/rhythm, normal heart sounds Gastrointestinal/Abdomen Exam: soft, normal bowel sounds Pelvic Exam: deferred Rectal Exam: deferred Back Exam: normal inspection Extremity Exam: normal inspection Skin Exam: normal color Final Diagnosis/Problem List - Final Discharge Diagnosis/Problem (1) Sepsis Current Visit: Yes Status: Resolved (2) Hyponatremia Current Visit: Yes Status: Resolved Code(s): E87.1 - HYPO-OSMOLALITY AND HYPONATREMIA (3) Pyelonephritis Current Visit: Yes Status: Acute Code(s): N12 - TUBULO-INTERSTITIAL NEPHRITIS, NOT SPCF ACUTE OR CHRONIC (4) Transaminitis Current Visit: Yes Status: Resolved Code(s): R74.01 - ELEVATION OF LEVELS OF LIVER TRANSAMINASE LEVELS (5) Infiltrate noted on imaging study Current Visit: Yes Status: Acute Code(s): R93.89 - ABNORMAL FINDINGS ON DX IMAGING OF OTH BODY STRUCTURES (6) Pleural effusion Current Visit: Yes Status: Acute Code(s): J90 - PLEURAL EFFUSION, NOT ELSEWHERE CLASSIFIED (7) Hypokalemia Current Visit: Yes Status: Acute Code(s): E87.6 - HYPOKALEMIA (8) Hypomagnesemia Current Visit: Yes Status: Acute Code(s): E83.42 - HYPOMAGNESEMIA - Discharge Disposition: Home, Self-Care Condition: Stable Prescriptions: New Levofloxacin [Levofloxacin 500 MG Tablet] 750 mg PO DAILY 5 Days #5 tablet Potassium Chloride 20 meq PO DAILY 5 Days #5 tablet Instructions: Oxygen Therapy, Adult (DC) Additional Instructions: WEAR 2L/NC AT ALL TIMES AT HOME. CALL [facility] AT [phone] WHEN YOU LEAVE [facility] SO THEY CAN MEET YOU AT HOME TO DELIVER YOUR HOME CONCENTRATOR Follow up with: DOCTOR,NO FAMILY [Primary Care Provider] - STEPHANIE SANABRIA),ABBI LOCKHART MD [NON-STAFF PHY W/O PRIVILEGES] - 09/16/23 1:00 pm
[2023-09-12 13:53] LABS: ALBUMIN 2.9 g/dL (3.5-5.0); ANION GAP 9.8 MEQ/L (5-15); Creatinine 1 0.86 mg/dL (0.52-1.04); EST GLOMERULAR FILTRATION RATE 77.3 ML/MIN; Potassium 3.2 mmol/L (3.5-5.1); Total Protein 6.3 g/dL (6.3-8.2)
[2023-09-12] MEDS: Klor Con PO ONE (14:52)
[2023-09-12 15:51] VITALS: BP 112/63; RESP 17; TEMP 96.6; O2SAT 99
[2023-09-13] MEDS ORDERED: Levofloxacin 500 MG Tablet PO SCH (10:00)
== END 2023-09-12 17:48 | disposition home or self-care (01) ==
LOC: ED 13:53 → MED SURG 17:16
PROVIDERS: ADMIT Internal Medicine; ATTEND Internal Medicine
DX: A41.9 Sepsis, unspecified organism (principal); E87.1 Hypo-osmolality and hyponatremia; N12 Tubulo-interstitial nephritis, not specified as acute or chronic; R93.89 Abnormal findings on diagnostic imaging of other specified body structures; R74.01 Elevation of levels of liver transaminase levels; E87.6 Hypokalemia; R00.0 Tachycardia, unspecified; J90 Pleural effusion, not elsewhere classified; E83.42 Hypomagnesemia; Z20.828 Contact with and (suspected) exposure to other viral communicable diseases; Z85.9 Personal history of malignant neoplasm, unspecified
CPT/HCPCS: 36415; 71045; 74176; 76705; 80048; 80053; 80074; 81001; 83605; 83690; 83735; 84132; 84145; 84484; 85025; 85379; 87040; 87077; 87086; 87186; 93005; 94667; 94668; 94762; 96365; 99285; Q3014; 93268; J1170; J1650; J1940; J1956; J2405; J3480; A9270-GY; G0378; J3475

== ENCOUNTER 2024-08-07 09:58 | Emergency (ER) | payer OTHER ==
[2024-08-07 10:11] VITALS: TEMP 100.1
[2024-08-07] MEDS: DUONEB 0.5-3 MG/3 ml Neb IH ONE (10:31)
[2024-08-07] MEDS: PULMICORT 0.5 MG/2 ML RESPULES IH STA (10:31)
--- NOTE | 2024-08-07 10:38 | ERPHSYRPT ---
- History of Present Illness Time Seen by Provider: 08/07/24 10:35 Source: patient Exam Limitations: no limitations Patient Subjective Stated Complaint: pt c/o of a cough for a week and now her lungs hurt Triage Nursing Assessment: Pt brought to the ER by family, hypoxic, rates lung pain as 10/10, pulses normal, skin n/w/d, smoker, placed on 2L NC and oxygen went up to 94%, thick yellow sputum, walked to the ER without assistance Physician History: 59-year-old female with significant past medical history of COPD history of smoking started having cough chest congestion fever chills for 1 week. She could not go and see her primary physician as she is on vacation. Patient shortness of breath and coughing got worse so she came to the emergency room. In the emergency room she was also complaining of fever chills shortness of breath and mucopurulent sputum. She does not take any medication and she usually does not have this type of problem off-and-on. Timing/Duration: week(s) (one week) Severity of Dyspnea-Max: moderate Severity of Dyspnea-Current: moderate Possible Cause: no prior episodes Associated Symptoms: cough, fever, loss of appetite, wheezing, weakness, chills Allergies/Adverse Reactions: Penicillins Allergy (Verified 08/07/24 10:11) Hx Influenza Vaccination/Date Given: No Hx Pneumococcal Vaccination/Date Given: No Travel Risk - International Travel Have you traveled outside of the country in past 3 weeks: No - Emerging Infectious Disease Are you exhibiting symptoms associated with any current EIDs: Yes Symptoms: Cough: New Onset, Shortness of Breath - Review of Systems Constitutional: Fever, Chills, Fatigue, Lethargy, Malaise Eyes: No Symptoms Ears, Nose, & Throat: No Symptoms Respiratory: Cough, Dyspnea, Dyspnea on Exertion (DOOLEY), Wheezing Cardiac: No Chest Pain, No Edema, No Syncope Abdominal/Gastrointestinal: No Abdominal Pain, No Nausea, No Vomiting, No Diarrhea Genitourinary Symptoms: No Dysuria Musculoskeletal: No Back Pain, No Neck Pain Skin: No Rash Neurological: No Dizziness, No Focal Weakness, No Sensory Changes Psychological: No Symptoms Endocrine: No Symptoms All Other Systems: Reviewed and Negative - Past Medical History Pertinent Past Medical History: Yes Neurological History: No Pertinent History ENT History: No Pertinent History Cardiac History: No Pertinent History Respiratory History: No Pertinent History Endocrine Medical History: No Pertinent History Musculoskeletal History: No Pertinent History GI Medical History: No Pertinent History History: No Pertinent History Psycho-Social History: No Pertinent History Female Reproductive Disorders: Other - Past Surgical History Past Surgical History: No Neuro Surgical History: No Pertinent History Cardiac: No Pertinent History Respiratory: No Pertinent History Gastrointestinal: No Pertinent History Genitourinary: No Pertinent History Musculoskeletal: No Pertinent History Female Surgical History: Hysterectomy - Social History Smoking Status: Current some day smoker Exposure to second hand smoke: Yes Drug Use: marijuana - Social Determinants of Health Will the patient participate in the screening: Yes Do you worry about a steady place to live?: No Do you have any problems with any of the following?: No known problems In the past 12 months,have you had to go without utilities?: No Transportation Issues: No Has anyone in your support network made you feel unsafe?: No Have you or anyone in your house had to go w/o enough food: No - Nursing Vital Signs Nursing Vital Signs: Initial Vital Signs Temperature 100.1 F 08/07/24 10:05 Pulse Rate 100 H 08/07/24 10:05 Respiratory Rate 15 08/07/24 10:05 Blood Pressure 122/65 08/07/24 10:05 O2 Sat by Pulse Oximetry 88 L 08/07/24 10:05 Pain Scale Pain Intensity 2 - Physical Exam General Appearance: mild distress, alert Eye Exam: PERRL/EOMI Neck Exam: normal inspection, supple Respiratory Exam: diminished breath sounds, crackles/rales, rhonchi, wheezing Cardiovascular/Chest Exam: normal heart sounds, regular rate/rhythm Abdominal/Gastrointestinal Exam: soft, No tenderness, No distention, No mass Extremity Exam: non-tender, normal range of motion, normal inspection, no calf tenderness, no pedal edema Neurologic Exam: alert, oriented x 3, cooperative, 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, sensation nml, No motor deficits Skin Exam: normal color, warm, No dry SpO2 Interpretation: hypoxic SpO2: 88 O2 Delivery: Room Air - Course Nursing assessment & vital signs reviewed: Yes Rhythm Strip: Normal Sinus Rhythm - Radiology Exams Chest X-ray Interpretation: Interpreted by me, Reviewed by me Ordered Tests: Active Orders 24 hr Category Date Time Status Oxygen-ED Only Nasal Cannula 3 lpm Care 08/07/24 10:16 Active CHEST 2 VIEWS (PA AND LAT) Stat Exams 08/07/24 10:17 Taken BLOOD CULTURE Stat Lab 08/07/24 10:43 Received CBC W DIFF Stat Lab 08/07/24 10:52 Completed CMP Stat Lab 08/07/24 10:52 Completed CULTURE,SPUTUM Stat Lab 08/07/24 10:17 Ordered PROCALCITONIN Stat Lab 08/07/24 10:52 Completed Respiratory Therapy Assessment DAILY RT 08/07/24 10:38 Active Medication Summary Discontinued Medications Generic Name Dose Route Start Last Admin Trade Name Freq PRN Reason Stop Dose Admin Acetaminophen 975 mg 08/07/24 10:16 08/07/24 10:46 Acetaminophen 325 Mg Tablet PO 08/07/24 10:17 975 mg STAT ONE Administration Acetaminophen Confirm 08/07/24 10:45 Acetaminophen 325 Mg Tablet Administered 08/07/24 10:46 Dose 975 mg .ROUTE .STK-MED ONE Albuterol/Ipratropium 3 ml 08/07/24 10:16 08/07/24 10:31 Ipratropium/Albuterol Sulfate 3 Ml Ampul.Neb IH 08/07/24 10:17 3 ml STAT ONE Administration Budesonide 0.5 mg 08/07/24 10:16 08/07/24 10:31 Budesonide 0.5 Mg/2 Ml Ampul.Neb. IH 08/07/24 10:17 0.5 mg UD STA Administration Methylprednisolone Sodium 0 mg 08/07/24 11:37 08/07/24 12:06 Succinate 125 mg/ Sterile IV 08/07/24 11:38 125 mg Water 2 ml STAT ONE Administration Sodium Chloride 1,000 mls @ 999 mls/hr 08/07/24 10:16 08/07/24 10:46 Sodium Chloride 0.9% 1000 Ml IV 08/07/24 11:16 999 mls/hr .Q1H1M STA Administration Sodium Chloride Confirm 08/07/24 10:45 Sodium Chloride 0.9% 1000 Ml Administered 08/07/24 10:46 Dose 1,000 mls @ ud .ROUTE .STK-MED ONE Levofloxacin/Dextrose 500 mg in 100 mls @ 100 mls/hr 08/07/24 11:14 08/07/24 11:21 Levofloxacin 500mg/100ml D5w IV 08/07/24 12:13 100 ml/hr STAT STA 100 mls/hr Administration Levofloxacin/Dextrose Confirm 08/07/24 11:17 Levofloxacin 500mg/100ml D5w Administered 08/07/24 11:18 Dose 500 mg in 100 mls @ ud IV .STK-MED ONE Methylprednisolone Sodium Succinate Confirm 08/07/24 12:02 Methylprednis Sod Succ 125 Mg/2 Ml Vial Administered 08/07/24 12:03 Dose 125 mg .ROUTE .STK-MED ONE Sterile Water Confirm 08/07/24 12:02 Water For Injection,Sterile 10 Ml Vial Administered 08/07/24 12:03 Dose 10 ml IJ .STK-MED ONE Lab/Rad Data: Laboratory Result Diagrams 08/07/24 10:52 08/07/24 10:52 Laboratory Results 08/07/24 08/07/24 08/07/24 Range/Units 11:00 10:52 10:52 WBC 14.9 H (3.98-10.04) x10^3/uL RBC 5.16 (3.93-5.22) x10^6/uL Hgb 15.4 (11.2-15.7) g/dL Hct 44.2 (34.1-44.9) % MCV 85.7 (79.4-94.8) fL MCH 29.8 (25.6-32.2) pg MCHC 34.8 (32.2-35.5) g/dL RDW 13.0 (11.7-14.4) % Plt Count 188 (182-369) x10^3/uL MPV 9.9 (9.4-12.3) fL Gran % 79.5 H (34.0-71.1) % Immature Gran % (Auto) 1.0 H (0.001-0.429) % Nucleat RBC Rel Count 0.0 (0.00-0.2) % Eos # (Auto) 0.01 L (0.04-0.36) x10^3/uL Immature Gran # (Auto) 0.15 H (0.001-0.031) x10^3u/L Absolute Lymphs (auto) 1.29 (1.18-3.74) x10^3/uL Absolute Monos (auto) 1.54 H (0.24-0.86) x10^3/uL Absolute Nucleated RBC 0.00 (0.00-0.012) x10^3u/L Lymphocytes % 8.7 L (19.3-51.7) % Monocytes % 10.4 (4.7-12.5) % Eosinophils % 0.1 L (0.7-5.8) % Basophils % 0.3 (0.1-1.2) % Absolute Granulocytes 11.82 H (1.56-6.13) x10^3/uL Basophils # 0.04 (0.01-0.08) x10^3/uL Sodium 131 L (135-145) mmol/L Potassium 3.5 (3.5-5.1) mmol/L Chloride 97 L (98-107) mmol/L Carbon Dioxide 22 (22-30) mmol/L Anion Gap 15.2 H (5-15) MEQ/L BUN 9 (7-17) mg/dL Creatinine 0.70 (0.52-1.04) mg/dL Estimated GFR 98.3 ML/MIN Glucose 117 H (74-106) mg/dL Calcium 8.4 (8.4-10.2) mg/dL Total Bilirubin 0.80 (0.2-1.3) mg/dL AST 106 H (14-36) U/L ALT 57 H (0-35) U/L Alkaline Phosphatase 100 (38-126) U/L Serum Total Protein 7.2 (6.3-8.2) g/dL Albumin 4.1 (3.5-5.0) g/dL Procalcitonin 0.960 H (0.030-0.080) ng/mL Influenza Type A Ag POSITIVE A (NEGATIVE) Influenza Type B Ag NEGATIVE (NEGATIVE) RSV (PCR) NEGATIVE (NEGATIVE) SARS-CoV-2 (PCR) NEGATIVE (NEGATIVE) - Progress Progress: improved Air Movement: fair Blood Culture(s) Obtained: Yes Antibiotics given: Yes Counseled pt/family regarding: lab results, diagnosis, need for follow-up, rad results, smoking cessation Medical Desision Making - Diagnostic Testing Diagnostic test were ordered, analyzed, and reviewed by me: Yes Radiological Interpretation: Interpreted by me, Reviewed by me - Risk of complications Low Risk: Low risk of morbidity from additional dx testing or treatment - Departure Departure Disposition: Home Clinical Impression: Chronic bronchitis with acute exacerbation, Influenza A Condition: Stable Critical Care Time: No Referrals: DOCTOR,NO FAMILY [Primary Care Provider] - Follow up with PCP 5 days Instructions: Acute bronchitis in adults Additional Instructions: Discharge/Care Plan JATINDER SHANNON was seen on 08/07/24 in the Emergency Room. The patient was counseled regarding Diagnosis,Lab results, Imaging studies, need for follow up and when to return to the Emergency Room. Prescriptions given: Discharge Note I have spoken with the patient and/or caregivers. I have explained the patient's condition, diagnosis and treatment plan based on the information available to me at this time. I have answered the patient's and/or caregiver's questions and addressed any concerns. The patient and/or caregivers have as good understanding of the patient's diagnosis, condition and treatment plan as can be expected at this point. The vital signs have been stable. The patient's condition is stable and appropriate for discharge from the emergency department. The patient will pursue further outpatient evaluation with the primary care physician or other designated or consulting physician as outlined in the discharge instructions. The patient and/or caregivers are agreeable to this plan of care and follow-up instructions have been explained in detail. The patient and/or caregivers have received these instruction. The patient/and or caregivers are aware that any significant change in condition or worsening of symptoms should prompt an immediate return to this or the closest emergency department or call 911. JATINDER SHANNON was seen on 08/07/24 n the Emergency Room. At that time you were treated for an emergent condition, during your visit Laboratory, Radiology and/or other procedures may have been ordered. It is very important that you follow-up with your Primary Care Physician NO FAMILY DOCTOR within the next 24- 48 hours to review your Emergency Room visit and the final results of testing that was ordered. Some test results such as Urine Cultures, Blood Cultures, and other cultures if ordered will not be finalized for 24-48 hours. If you do not have a Primary Care Provider please call the medical records department at [phone] to obtain a copy of your results or you may sign into our patient portal to obtain these results by visiting us @ [email or web address] and completing the following steps: 1. Click on the Patient Portal link 2. Click the Patient Self Enrollment Link to complete the enrollment form and entering your 3. Once the enrollment form is completed you will receive an email with a temporary ID and password at the email address you provided. 4. Next choose a user name and password. Your user name must be at least 4 characters long and your password must be at least 4 characters long. 5. Choose a security question from the list and provide your answer to the question. If you already have signed into the Health Portal you may access your Health Care Information 30/12 by the following steps: 1. Login to our website @ [email or web address] 2. Enter your original user name and password. FAQS The [facility] Health Portal is an online tool that contains your Lab Results, Radiology Reports, Visit History, Discharge Instructions and Health Summary Lab and Radiology Results will not be available for 72 hours on the portal. The Portal is a secure site, passwords are encryted and URLs are re-written so they cannot be copied and pasted. You and authorized family members are the only ones who can access your Portal. Also there is a timeout feature that protects your information if you leave the Portal page open. If you have technical difficulty please use the Contact Us link on the page this will allow you to submit any questions you have regarding the Portal or you may contact the Medical Record Department at [phone]. Prescriptions: Ipratropium/Albuterol Sulfate [Combivent Respimat Inhal [place]] 1 gm IH QID 30 Days #120 inh Levofloxacin [Levaquin 500 MG Tablet] 500 mg PO QAM #10 tablet Methylprednisolone Packet [Medrol Dosepack] 4 mg PO UD #21 packet Oseltamivir 75 mg [Tamiflu 75MG Capsule] 75 mg PO BID #10 cap
[2024-08-07] MEDS ORDERED: Sodium Chloride 0.9% 1000 ML 1,000 ML ONE (10:45)
[2024-08-07] MEDS ORDERED: TYLENOL 325 MG ONE (10:45)
[2024-08-07] MEDS: TYLENOL 325 MG PO ONE (10:46)
[2024-08-07] MEDS: Sodium Chloride 0.9% 1000 ML 1,000 ML IV STA (10:46)
[2024-08-07 11:00] LABS: Absolute Neutrophil Ct (ANC) 11.82 x10^3/uL (1.56-6.13); BASOPHIL % 0.3 % (0.1-1.2); Basophil (Absolute #) 0.04 x10^3/uL (0.01-0.08); Eosinophil % 0.1 % (0.7-5.8); Eosinophil (Absolute #) 0.01 x10^3/uL (0.04-0.36); Hematocrit 44.2 % (34.1-44.9); Hemoglobin 15.4 g/dL (11.2-15.7); IMMATURE GRAN # 0.15 x10^3u/L (0.001-0.031); Lymphocyte (Absolute #) 1.29 x10^3/uL (1.18-3.74); Lymphocytes % 8.7 % (19.3-51.7); Mean Cell Volume 85.7 fL (79.4-94.8); Mean Corpuscular Hemoglobin 29.8 pg (25.6-32.2); Mean Corpuscular Hgb Concent. 34.8 g/dL (32.2-35.5); Mean Platelet Volume 9.9 fL (9.4-12.3); Monocyte (Absolute #) 1.54 x10^3/uL (0.24-0.86); Monocytes % 10.4 % (4.7-12.5); Neutrophil % 79.5 % (34.0-71.1); Platelet Count 188 x10^3/uL (182-369); Red Blood Count 5.16 x10^6/uL (3.93-5.22); White Blood Count 14.9 x10^3/uL (3.98-10.04)
[2024-08-07] MEDS ORDERED: Levofloxacin 500MG/100ML D5W 500 MG/100 ML BAG IV ONE (11:17)
[2024-08-07] MEDS: Levofloxacin 500MG/100ML D5W 500 MG/100 ML BAG IV STA (11:21)
[2024-08-07 11:35] LABS: ALBUMIN 4.1 g/dL (3.5-5.0); ANION GAP 15.2 MEQ/L (5-15); BILIRUBIN,TOTAL 0.8 mg/dL (0.2-1.3); Calcium 8.4 mg/dL (8.4-10.2); Creatinine 1 0.7 mg/dL (0.52-1.04); EST GLOMERULAR FILTRATION RATE 98.3 ML/MIN; PROCALCITONIN 0.96 ng/mL (0.030-0.080); Potassium 3.5 mmol/L (3.5-5.1); Total Protein 7.2 g/dL (6.3-8.2)
[2024-08-07 11:36] LABS: INFLUENZA B NEGATIVE (NEGATIVE); RESPIRATORY SYNCTIAL VIRUS NEGATIVE (NEGATIVE); SARS-CoV-2 Xpert Express NEGATIVE (NEGATIVE)
[2024-08-07 11:39] LABS: INFLUENZA A POSITIVE (NEGATIVE)
[2024-08-07] MEDS ORDERED: solu-MEDROL ONE (12:02)
[2024-08-07] MEDS ORDERED: Sterile H2O 10 ml IJ ONE (12:02)
[2024-08-07] MEDS: solu-MEDROL 125 MG, Sterile H2O 10 ml 2 ML IV ONE (12:06)
[2024-08-07 13:03] VITALS: BP 111/68; PULSE 92; RESP 21
[2024-08-07 13:13] VITALS: O2SAT 88
[2024-08-07] MEDS ORDERED: Tamiflu 75MG Capsule PO ONE (13:16)
[2024-08-07] MEDS: Tamiflu 75MG Capsule PO ONE (13:17)
--- NOTE | 2024-08-07 20:30 | XRAY ---
Indication: Cough and fever. Short of breath. Comparison: September 11, 2023 PA/lateral chest again hyperinflated with chronic lung markings and a few tiny calcified granulomas. No focal infiltrate, consolidation, or large effusion. Heart not enlarged. Bony thorax intact again with osteopenia and minimal degenerative changes. Impression: Nonacute chest with chronic features.
== END 2024-08-07 13:10 | disposition home or self-care (01) ==
LOC: ED 09:58
DX: J42 Unspecified chronic bronchitis (principal); J10.1 Influenza due to other identified influenza virus with other respiratory manifestations; R05.1 Acute cough; R06.02 Shortness of breath; Z79.52 Long term (current) use of systemic steroids; Z79.899 Other long term (current) drug therapy; Z72.0 Tobacco use
CPT/HCPCS: 0241U; 36415; 71046; 80053; 84145; 85025; 87040; 94640; 96361; 96365; 96375; 99285; 99284; J1956; J2919; A9270-GY